=== PATIENT | female | born 1965 | race Caucasian/White ===

== ENCOUNTER 2016-12-01 15:23 | Emergency (ER) | payer MEDICARE ==
[2016-12-01 16:14] VITALS: BP 149/20
[2016-12-01] MEDS ORDERED: HYDROcodone/ACETAMIN 5-325 MG* 1 TAB PO ONE (16:19)
--- NOTE | 2016-12-01 16:50 | RAD ---
Indication: Tender at the LEFT anterolateral sixth through 11th ribs post fall onto ice. Comparison: January 27, 2014 chest radiograph. Technique: 5 view LEFT rib series. Report: Subtle contour irregularity of the LEFT seventh and eighth ribs laterally noted new compared with the prior exam consistent with nondisplaced fractures. Negative for associated pulmonary contusion, pleural effusion, pneumothorax. The heart, pulmonary vasculature, and mediastinal contours are unremarkable. IMPRESSION: Nondisplaced LEFT seventh and eighth rib fractures laterally. Negative for pneumothorax.
--- NOTE | 2016-12-01 20:50 | UC ---
Yoko Marrero SooYoung, scribed for GabyLaure DavidDO on 12/01/16 at 1612 . Truncal Trauma HPI - HPI Summary HPI Summary: A 51 y/o F presents to [facility] with c/o truncal trauma and pain onset approx 0820 this AM. Pt was shoveling outside, fell onto some ice, landing on her L side. She was unable to get up by herself. She went in and took a nap, but woke up and still had a lot of pain. Associated sx: mild nausea since pain started, small abrasion on L knee. Denies hitting head, vomiting, neck pain, dizziness, miles, visual changes, fatigue. Aggravating factors: deep breaths, movement/ walking. No alleviating factors. - History Of Current Complaint Stated Complaint: TRUNCAL TRAUMA Hx Obtained From: Patient Hx Last Menstrual Period: tubal Onset/Duration: Lasting Hours - onset 0820, Still Present Severity Initially: Severe Severity Currently: Severe Pain Intensity: 8 Pain Scale Used: 0-10 Numeric Mechanism Of Injury: Fall From A Standing Position Aggravating Factor(s): Movement, Deep Breathing Alleviating factor(s): Nothing Associated Signs And Symptoms: Positive: Nausea - mild. Negative: SOB, Cough, Hematuria, Abdominal Pain, Fever, Vomiting Related History: Prior Rib Fracture - Allergies/Home Medications Allergies/Adverse Reactions: Allergies Allergy/AdvReac Type Severity Reaction Status Date / Time Clonidine Allergy Itching Verified 05/10/16 08:37 Hydroxyzine Allergy Itching Verified 05/10/16 08:37 antibiotic Allergy Unknown Itching Uncoded 05/10/16 08:37 Home Medications: Home Medications Venlafaxine ER (NF) [Effexor ER (NF)] 300 mg PO DAILY 12/01/16 [History Confirmed 12/01/16] PMH/Surg Hx/FS Hx/Imm Hx Previously Healthy: No Endocrine History Of: Reports: Thyroid Disease - HYPO Denies: Diabetes Cardiovascular History Of: Denies: Cardiac Disorders, Hypertension, Pacemaker/ICD Respiratory History Of: Denies: COPD, Asthma GI/ History Of: Denies: Ulcer, Renal Disease Psychological History Of: Reports: Anxiety, Depression - Surgical History Surgical History: Yes Surgery Procedure, Year, and Place: tubal ligation 1993 - Family History Known Family History: Positive: Unknown - adopted, Cardiac Disease - Social History Occupation: Unemployed Lives: With Family Alcohol Use: None Substance Use Type: None Smoking Status (MU): Heavy Every Day Tobacco Smoker Type: Cigarettes Amount Used/How Often: 1 ppd Length of Time of Smoking/Using Tobacco: 35 YRS Have You Smoked in the Last Year: Yes Household Exposure Type: Cigarettes Cessation Counseling: Patient Advised to Stop Review of Systems Constitutional: Negative Skin: Other - small abrasion at L knee Eyes: Negative ENT: Negative Respiratory: Negative Cardiovascular: Negative Gastrointestinal: Other - mild nausea Genitourinary: Negative Motor: Negative Neurovascular: Negative Musculoskeletal: Other: - pain at L ribs Neurological: Negative Psychological: Negative All Other Systems Reviewed And Are Negative: Yes Physical Exam Triage Information Reviewed: Yes Appearance: Well-Appearing, Pain Distress - MODERATE, Obese Vital Signs: Initial Vital Signs Temp 98.6 F 12/01/16 16:08 Pulse 113 12/01/16 16:08 Resp 18 12/01/16 16:08 BP 149/20 12/01/16 16:08 Pulse Ox 97 12/01/16 16:08 Vital Signs Reviewed: Yes Eyes: Positive: Conjunctiva Clear. Negative: Discharge ENT: Positive: Hearing grossly normal. Negative: Muffled/hoarse voice Neck exam: Normal Neck: Positive: Supple Respiratory: Positive: Lungs clear, Normal breath sounds, No respiratory distress, No accessory muscle use Cardiovascular: Positive: RRR, No Murmur Musculoskeletal Exam: Normal Musculoskeletal: Positive: Strength Intact, No Edema, ROM Limited @ - d/t pain, Other: - TENDERNESS AT RIBS 6 to 11 on L Neurological: Positive: Alert, Muscle Tone Normal Psychological Exam: Normal Psychological: Positive: Age Appropriate Behavior Skin Exam: Normal, Other - warm, dry, nml color Diagnostics - Radiology Ribs XR Xray Interpretation: Positive (See Comments) - IMPRESSION: Nondisplaced L seventh and eigth rib fractures laterally. Neg for PTX. Radiology Interpretation Completed By: Radiologist Truncal Trauma Course/Dx - Differential Dx/Diagnosis Differential Diagnosis/HQI/PQRI: Chest Wall Contusion, Renal Trauma, Rib Fracture Provider Diagnoses: rib fx Discharge - Discharge Plan Condition: Stable Disposition: HOME Prescriptions: HYDROcodone/ACETAMIN 5-325 MG* [[place] 5-325 TAB*] 1 tab PO Q6H PRN #16 tab MDD 4 TABS PRN Reason: Pain Patient Education Materials: Rib Fracture (ED) Referrals: Everett Mendoza MD [Primary Care Provider] - 4 Days Additional Instructions: ORAL NARCOTIC MEDICATION: You have been given a prescription for pain control. This medication is a narcotic. It's best taken with food, as nausea can result if taken on an empty stomach. Don't operate machinery or drive within six hours of taking this medication. Do not combine this medicine with alcohol, or with any medication which can cause sedation (such as cold tablets or sleeping pills) unless you get permission from the physician. Narcotics tend to cause constipation. If possible, drink plenty of fluids and eat a diet high in fiber and fruits. The documentation as recorded by the Yoko malik SooYoung accurately reflects the service I personally performed and the decisions made by me, Laure Griffin DO.
== END 2016-12-01 17:14 | disposition home or self-care (01) ==
LOC: UCEAST 15:23
DX: S22.42XA Multiple fractures of ribs, left side, initial encounter for closed fracture (principal); S80.212A Abrasion, left knee, initial encounter; W00.0XXA Fall on same level due to ice and snow, initial encounter; Y93.H1 Activity, digging, shoveling and raking; Y92.9 Unspecified place or not applicable; R11.0 Nausea; Z88.1 Allergy status to other antibiotic agents; Z88.8 Allergy status to other drugs, medicaments and biological substances; F17.210 Nicotine dependence, cigarettes, uncomplicated
CPT/HCPCS: 81002; 87086; 99212; G0463

== ENCOUNTER 2017-02-11 19:45 | Emergency (ER) | payer MEDICARE ==
--- NOTE | 2017-02-11 20:17 | UC ---
Headache HPI - HPI Summary HPI Summary: The patient comes in today for: 1. Headache: Onset: 15 hours. Palliative/provocative: Laying back makes it worse. Quality: Throbbing. Region: Bitemporal, frontal, occiput Severity: 09/05 Time: Constant. Associated symptoms: Previous treatment: She took only 400 mg of Advil. Nothing else. This did not help. Nausea: "a little bit." Numbness/weakness (focal): NOne. Previous disease: Present--she sees Dr. Carlton (neurologist) who stated by the patient that she has "cluster" headaches, but she also describes them as "regular headaches." She states that she usually gets ketorolac 60 mg IM. * - History Of Current Complaint Chief Complaint: UCHeadache Stated Complaint: HEADACHE Time Seen by Provider: 02/11/17 20:11 Hx Obtained From: Patient Hx Last Menstrual Period: tubal - Allergies/Home Medications Allergies/Adverse Reactions: Allergies Allergy/AdvReac Type Severity Reaction Status Date / Time Clonidine Allergy Itching Verified 02/11/17 19:56 Hydroxyzine Allergy Itching Verified 02/11/17 19:56 antibiotic Allergy Unknown Itching Uncoded 02/11/17 19:56 PMH/Surg Hx/FS Hx/Imm Hx Previously Healthy: No Endocrine History Of: Reports: Thyroid Disease - HYPO, Hypothyroidism Denies: Diabetes, Hyperthyroidism, Dyslipidemia Cardiovascular History Of: Denies: Cardiac Disorders, Hypertension, Pacemaker/ICD, Myocardial Infarction , Congestive Heart Failure, Atrial Fibrillation, Deep Vein Thrombosis, Bleeding Disorders Respiratory History Of: Denies: COPD, Asthma, Bronchitis, Pneumonia, Pulmonary Embolism GI/ History Of: Reports: Gastroesophageal Reflux Denies: Ulcer, Gastrointestinal Bleed, Gall Bladder Disease, Kidney Stones, Diverticulitis, Renal Disease, Urosepsis Neurological History Of: Denies: TIA, CVA, Dementia, Seizures, Migraine Psychological History Of: Reports: Anxiety, Depression Denies: Bipolar Disorder, Schizophrenia, Post Traumatic Stress Disorder Cancer History Of: Denies: Lung Cancer, Colorectal Cancer, Breast Cancer, Prostate Cancer, Cervical Cancer - Surgical History Surgical History: Yes Surgery Procedure, Year, and Place: tubal ligation 1993 - Family History Known Family History: Positive: Cardiac Disease, Hypertension Negative: Diabetes - Social History Occupation: Disabled - Disabled due to depression/anxiety. Alcohol Use: None Substance Use Type: Prescribed Smoking Status (MU): Heavy Every Day Tobacco Smoker Type: Cigarettes Amount Used/How Often: 1 ppd Length of Time of Smoking/Using Tobacco: 35 YRS Have You Smoked in the Last Year: Yes Household Exposure Type: Cigarettes Review of Systems Constitutional: Negative Skin: Negative Eyes: Negative ENT: Negative Respiratory: Negative Cardiovascular: Negative Gastrointestinal: Negative Musculoskeletal: Arthralgia, Myalgia All Other Systems Reviewed And Are Negative: Yes Physical Exam Triage Information Reviewed: Yes Appearance: Well-Appearing, Well-Nourished, Pain Distress - She has decreased facial expression spontaneity. Vital Signs: Initial Vital Signs Temp 98.8 F 02/11/17 19:52 Pulse 103 02/11/17 19:52 Resp 18 02/11/17 19:52 BP 122/89 02/11/17 19:52 Pulse Ox 99 02/11/17 19:52 Vital Signs Reviewed: Yes Eyes: Positive: Conjunctiva Clear. Negative: Discharge ENT: Positive: Hearing grossly normal. Negative: Pharyngeal erythema, Nasal congestion, Nasal drainage, TM bulging, TM dull, TM red, Tonsillar swelling, Tonsillar exudate Dental: Negative: Gross Decay/Caries @, Dental Fracture @ Neck: Positive: Supple, Nontender, No Lymphadenopathy. Negative: Nuchal Rigidity Respiratory: Positive: Chest non-tender, Lungs clear, No respiratory distress, No accessory muscle use. Negative: Crackles, Wheezing Cardiovascular: Positive: RRR, No Murmur Abdomen Description: Positive: Nontender, No Organomegaly, Soft, Distended Musculoskeletal: Positive: Strength Intact, ROM Intact Neurological: Positive: Alert, Muscle Tone Normal Psychological: Positive: Age Appropriate Behavior, Consolable Skin: Negative: rashes, breakdown Re-Evaluation - Re-Evaluation First Eval Change: Improved Comment: The patient states that she is much better after the ketorolac injection--the headache is from 10/10 to 4/10. She wants to go home. Headache Course/Dx - Course Course Of Treatment: Ketorolac injection. - Differential Dx/Diagnosis Provider Diagnoses: Headache. Discharge - Discharge Plan Condition: Stable Disposition: HOME Patient Education Materials: General Headache (ED) Referrals: Everett Mendoza MD [Primary Care Provider] - 1 Week (Please see your primary care provider in a week to see how well you are doing. If you get worse, please be seen sooner in the ER or through us.)
[2017-02-11] MEDS ORDERED: Ketorolac INJ* 60 MG/2 ML VIAL IM ONE (20:20)
[2017-02-11 21:35] VITALS: BP 110/85
== END 2017-02-11 21:30 | disposition home or self-care (01) ==
LOC: UCEAST 19:45
DX: R51 Headache (principal); E03.9 Hypothyroidism, unspecified; F17.210 Nicotine dependence, cigarettes, uncomplicated; Z88.1 Allergy status to other antibiotic agents
CPT/HCPCS: 99212; G0463; J1885

== ENCOUNTER 2017-07-29 19:18 | Emergency (ER) | payer MEDICARE ==
[2017-07-29 19:36] VITALS: BP 124/78
--- NOTE | 2017-07-29 20:09 | UC ---
Mile Marrero Alfonso, scribed for Gilberto Ribeiro MD on 07/29/17 at 2003 . Headache HPI - HPI Summary HPI Summary: This patient is a 52 year old F presenting to [facility] with a chief complaint of diffuse throbbing headache since waking up at 0900 this morning. The patient rates the pain 9/10 in severity. Symptoms aggravated by nothing. Symptoms alleviated by nothing. Patient reports sinus congestion. Patient denies fever, chills, N/V, photophobia, and rhinorrhea. She denies recent trauma. She denies taking blood thinning medication. PMHx includes anxiety and similar headaches. Medications reviewed. Allergies reviewed. - History Of Current Complaint Chief Complaint: UCRespiratory Stated Complaint: HEADACHE Time Seen by Provider: 07/29/17 19:57 Hx Obtained From: Patient Hx Last Menstrual Period: tubal Onset/Duration: Sudden Onset, Lasting Hours - 0900 this morning, Still Present Currently Pain Is: Current Pain Scale(0-10)= - 9/10 Pain Intensity: 9 Pain Scale Used: 0-10 Numeric Timing: Constant Character: Throbbing Location of Headache: Diffuse Aggravating Factor: Nothing Allevating Factors: Nothing Associated Signs And Symptoms: Positive: Other (Noted In Comments) - sinus congestion. Patient denies fever, chills, N/V, photophobia, and rhinorrhea - Allergies/Home Medications Allergies/Adverse Reactions: Allergies Allergy/AdvReac Type Severity Reaction Status Date / Time Clonidine Allergy Itching Verified 07/29/17 19:36 Hydroxyzine Allergy Itching Verified 07/29/17 19:36 antibiotic Allergy Unknown Itching Uncoded 07/29/17 19:36 PMH/Surg Hx/FS Hx/Imm Hx Neurological History: Other - Headaches Other Neurological History: . Psychological History: Anxiety - Surgical History Surgical History: Yes Surgery Procedure, Year, and Place: tubal ligation 1993 - Family History Known Family History: Positive: Cardiac Disease, Hypertension Negative: Diabetes - Social History Alcohol Use: None Substance Use Type: Prescribed Smoking Status (MU): Heavy Every Day Tobacco Smoker Type: Cigarettes Amount Used/How Often: 1 ppd Length of Time of Smoking/Using Tobacco: 35 YRS Have You Smoked in the Last Year: Yes Household Exposure Type: Cigarettes Review of Systems Constitutional: Negative Eyes: Other - Negative photophobia ENT: Sinus Congestion, Other - Negative rhinorrhea Gastrointestinal: Other - Negative N/V Neurological: Headache All Other Systems Reviewed And Are Negative: Yes Physical Exam Triage Information Reviewed: Yes Appearance: Well-Appearing, Pain Distress - Mild Vital Signs: Initial Vital Signs Temp 96.4 F 07/29/17 19:34 Pulse 104 07/29/17 19:34 Resp 18 07/29/17 19:34 BP 124/78 07/29/17 19:34 Pulse Ox 99 07/29/17 19:34 Vital Signs Reviewed: Yes Eyes: Positive: Other: - EOMI MARITZA ENT: Positive: Normal ENT inspection Neck: Positive: Supple, Nontender Respiratory: Positive: Lungs clear, Normal breath sounds Cardiovascular: Positive: RRR Abdomen Description: Positive: Nontender, Soft Bowel Sounds: Positive: Present Musculoskeletal: Positive: Strength Intact, ROM Intact Neurological: Positive: Alert Psychological: Positive: Age Appropriate Behavior Skin: Positive: Other - warm, color reflects adequate perfusion, dry Headache Course/Dx - Course Course Of Treatment: PATIENT REPORTS THIS IS A TYPICAL ABRAHAM. NO FEVER/SIGN OF INFECTION. NO TRAUMA. - Differential Dx/Diagnosis Provider Diagnoses: HEADACHE Discharge - Discharge Plan Condition: Stable Disposition: HOME Patient Education Materials: General Headache (ED) Referrals: Everett Mendoza MD [Primary Care Provider] - 2 Weeks Elke Carlton MD [Medical Doctor] - Additional Instructions: FOLLOW UP WITH YOUR PRIMARY CARE PROVIDER WITHIN TWO WEEKS FOR HIGH BLOOD PRESSURE NOTED TODAY AT 124/78. The documentation as recorded by the Mile malik Alfonso accurately reflects the service I personally performed and the decisions made by me, Gilberto Ribeiro MD.
[2017-07-29] MEDS: Ketorolac INJ* 60 MG/2 ML VIAL IM ONE (20:17)
== END 2017-07-29 20:37 | disposition home or self-care (01) ==
LOC: UCEAST 19:18
DX: R51 Headache (principal); R03.0 Elevated blood-pressure reading, without diagnosis of hypertension
CPT/HCPCS: 96372; 99211; G0463; J1885

== ENCOUNTER 2017-07-31 14:14 | Emergency (ER) | payer MEDICARE ==
[2017-07-31 14:23] VITALS: BP 122/81
[2017-07-31] MEDS ORDERED: Ketorolac INJ* 60 MG/2 ML VIAL IM ONE (15:01)
--- NOTE | 2017-07-31 15:35 | ED ---
Zhang Marrero Nikita, scribed for Mic Diaz MD on 07/31/17 at 1458 . Headache - HPI Summary HPI Summary: This patient is a 52 year old F presenting to ED with a chief complaint of headache since two days ago. Pt reports this Monday she took a 16 mg of Toradol shot. The headache lessened but persisted. Pt has had a Hx of headaches once a month which usually gets better after having 4 Advil. Yesterday, the pt still felt the ABRAHAM and she took nothing today because nothing had been working to alleviate the pain. The CC is described as from neck up (usually, the ABRAHAM is all over the head), and constant but waxing and waning. The patient rates the pain 8/10 in severity. Symptoms aggravated by nothing. Symptoms alleviated by nothing. Patient reports diaphoresis. Patient denies nausea, photophobia, fever , chills, rhinorrhea, and nasal congestion. - History Of Current Complaint Chief Complaint: UCHeadache Stated Complaint: HEADACHE Time Seen by Provider: 07/31/17 14:50 Hx Obtained From: Patient Hx Last Menstrual Period: tubal Onset/Duration: Sudden Onset, Started days ago - 2 days ago, Still Present Initially Headache Was: Initial Pain Scale(0-10)= - 8 Currently Pain Is: Current Pain Scale(0-10)= - 8 Timing: Constant - waxing and waning Location of Headache: Diffuse - starts from neck Aggravating Factor: Nothing Allevating Factors: Nothing Associated Signs And Symptoms: Other (Noted In Comments) - Patient reports diaphoresis. Patient denies nausea, photophobia, fever, chills, rhinorrhea, and nasal congestion. - Allergies/Home Medications Allergies/Adverse Reactions: Allergies Allergy/AdvReac Type Severity Reaction Status Date / Time Clonidine Allergy Itching Verified 07/31/17 14:21 Hydroxyzine Allergy Itching Verified 07/31/17 14:21 antibiotic Allergy Unknown Itching Uncoded 07/31/17 14:21 PMH/Surg Hx/FS Hx/Imm Hx Endocrine/Hematology History: Reports: Hx Thyroid Disease - HYPO Denies: Hx Diabetes, Hx Anemia Cardiovascular History: Reports: Other Cardiovascular Problems/Disorders - IRREGULAR HEARTBEAT Denies: Hx Congestive Heart Failure, Hx Deep Vein Thrombosis, Hx Hypertension , Hx Myocardial Infarction, Hx Pacemaker/ICD Respiratory History: Denies: Hx Asthma, Hx Chronic Obstructive Pulmonary Disease (COPD), Hx Lung Cancer, Hx Pneumonia, Hx Pulmonary Embolism GI History: Reports: Hx Gastroesophageal Reflux Disease - PT. STATES CONTROLLED WITH MEDS Denies: Hx Gall Bladder Disease, Hx Gastrointestinal Bleed, Hx Ulcer, Hx Urosepsis History: Denies: Hx Kidney Stones, Hx Renal Disease Musculoskeletal History: Reports: Other Musculoskeletal History - CARPAL TUNNEL SYNDROME Sensory History: Reports: Hx Contacts or Glasses - READING Denies: Hx Hearing Aid Opthamlomology History: Reports: Hx Contacts or Glasses - READING Neurological History: Reports: Hx Headaches - OCC Denies: Hx Dementia, Hx Migraine, Hx Seizures, Hx Transient Ischemic Attacks (TIA) Psychiatric History: Reports: Hx Anxiety, Hx Depression Denies: Hx Panic Disorder, Hx Schizophrenia, Hx Bipolar Disorder - Surgical History Surgery Procedure, Year, and Place: tubal ligation 1993. left and right carpal tunnel Hx Anesthesia Reactions: No Infectious Disease History: No Infectious Disease History: Denies: Hx Clostridium Difficile, Hx Hepatitis, Hx Human Immunodeficiency Virus (HIV), Hx of Known/Suspected MRSA, Hx Shingles, Hx Tuberculosis, Hx Known/ Suspected VRE, Hx Known/Suspected VRSA, History Other Infectious Disease, Traveled Outside the [place] in Last 30 Days - Family History Known Family History: Positive: Unknown - adopted, Cardiac Disease, Hypertension Negative: Diabetes - Social History Alcohol Use: None Substance Use Type: Reports: None, Prescribed Smoking Status (MU): Heavy Every Day Tobacco Smoker Type: Cigarettes Amount Used/How Often: 1 ppd Length of Time of Smoking/Using Tobacco: 35 YRS Have You Smoked in the Last Year: Yes Review of Systems Positive: Skin Diaphoresis. Negative: Fever, Chills Negative: Photophobia Positive: Other - NEGATIVE: rhinnorhea, nasal congestion Negative: Nausea Positive: Headache All Other Systems Reviewed And Are Negative: Yes Physical Exam - Summary Physical Exam Summary: The patient is in no acute distress. HEENT: The pupils are equal and reactive. Mouth reveals moist mucous membranes and the throat is without erythema and exudate. The tympanic membranes are intact. Non-photophobic. TM is visual and normal. Tenderness to percussion of sinuses. Reproducible pain over sinuses. Neck is supple. No meningeal signs. Full range of motion through fluxion and extension of neck. Respiratory: Lungs are clear to auscultation and breath sounds are symmetrical and equal. Cardiovascular: Heart is regular rate and rhythm. Distal pulses are symmetrical and equal. Abdomen: The abdomen is soft and non-tender. There are normal bowel sounds heard in all four quadrants. Neurological: Patient is alert. ~The patient has symmetrical motor strength in all four extremities. ~Cranial nerves are grossly intact. Deep tendon reflexes are symmetrical and equal in all four extremities. Psychological: Patient answers questions appropriately. Triage Information Reviewed: Yes Vital Signs On Initial Exam: Initial Vitals Temp Pulse Resp BP Pulse Ox 98.5 F 100 18 122/81 98 07/31/17 14:16 07/31/17 14:16 07/31/17 14:16 07/31/17 14:16 07/31/17 14:16 Vital Signs Reviewed: Yes Diagnostics - Vital Signs Vital Signs Temp Pulse Resp BP Pulse Ox 07/31/17 14:16 98.5 F 100 18 122/81 98 - Laboratory Lab Statement: Any lab studies that have been ordered have been reviewed, and results considered in the medical decision making process. Headache Course/Dx - Course Assessment/Plan: This patient is a 52 year old F presenting to ED with a chief complaint of headache since two days ago. Pt reports this Monday she took a 16 mg of Toradol shot. The headache lessened but persisted. Pt has had a Hx of headaches once a month which usually gets better after having 4 Advil. The CC is described as from neck up (usually, the ABRAHAM is all over the head), and constant but waxing and waning. The patient rates the pain 8/10 in severity. Symptoms aggravated by nothing. Symptoms alleviated by nothing. Patient reports diaphoresis. Patient denies nausea, photophobia, fever, chills, rhinnorhea, and nasal congestion. Pt will be discharged with Rx 5 Percocet and a Dx of a headache. Pt will follow up with Elke Carlton (neuro) and Everett Mendoza (PCP) within 2-3 days. Pt is agreeable with this plan. - Diagnoses Differential Diagnosis/HQI/PQRI: Migraine, Tension Headache, Other - generalized headache Provider Diagnoses: Headache Discharge - Discharge Plan Condition: Stable Disposition: HOME Prescriptions: oxyCODONE/Acetamin 5/325 MG* [Percocet 5/325 TAB*] 1 tab PO Q6H PRN #20 tab MDD 4 PRN Reason: headache Patient Education Materials: General Headache (ED) Referrals: Everett Mendoza MD [Primary Care Provider] - (Follow up within 2-3 days.) Elke Carlton MD [Medical Doctor] - (Follow up within 2-3 days.) The documentation as recorded by the Zhang malik Nikita accurately reflects the service I personally performed and the decisions made by me, Mic Diaz MD.
== END 2017-07-31 15:29 | disposition home or self-care (01) ==
LOC: UCEAST 14:14
DX: R51 Headache (principal); R61 Generalized hyperhidrosis; E03.9 Hypothyroidism, unspecified; I49.9 Cardiac arrhythmia, unspecified; K21.9 Gastro-esophageal reflux disease without esophagitis; F41.9 Anxiety disorder, unspecified; F32.9 Major depressive disorder, single episode, unspecified; Z88.1 Allergy status to other antibiotic agents; F17.210 Nicotine dependence, cigarettes, uncomplicated
CPT/HCPCS: 99212; G0463; J1885

== ENCOUNTER 2017-09-21 18:14 | Emergency (ER) | payer SELFPAY ==
[2017-09-21 18:31] VITALS: BP 120/76
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
== END 2017-09-21 19:17 | disposition home or self-care (01) ==
LOC: UCEAST 18:14
DX: R07.81 Pleurodynia (principal); Z88.1 Allergy status to other antibiotic agents; Z88.8 Allergy status to other drugs, medicaments and biological substances; F17.210 Nicotine dependence, cigarettes, uncomplicated
CPT/HCPCS: 71020; 99212; G0463

== ENCOUNTER 2017-12-02 17:27 | Emergency (ER) | payer MEDICARE ==
[2017-12-02 17:37] VITALS: BP 121/83
--- NOTE | 2017-12-02 17:55 | UC ---
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 Negative: Nausea, Vomiting, Neck Pain, Neck Stiffness - Allergies/Home Medications Allergies/Adverse Reactions: Allergies Allergy/AdvReac Type Severity Reaction Status Date / Time Clonidine Allergy Itching Verified 12/02/17 17:38 Hydroxyzine Allergy Itching Verified 12/02/17 17:38 antibiotic Allergy Unknown Itching Uncoded 12/02/17 17:38 Home Medications: Home Medications Ibuprofen TAB* [Motrin TAB* 800 MG] 800 mg PO Q6H PRN 12/02/17 [History Confirmed 12/02/17] PMH/Surg Hx/FS Hx/Imm Hx Previously Healthy: Yes Endocrine History: Hypothyroidism Psychological History: Anxiety, Depression, Bipolar Disorder - Surgical History Surgical History: Yes Surgery Procedure, Year, and Place: tubal ligation 1993. left and right carpal tunnel - Family History Known Family History: Positive: Unknown - adopted, Cardiac Disease, Hypertension Negative: Diabetes - Social History Occupation: Disabled Lives: With Family Alcohol Use: None Substance Use Type: None Smoking Status (MU): Heavy Every Day Tobacco Smoker Type: Cigarettes Amount Used/How Often: 1 ppd Length of Time of Smoking/Using Tobacco: 35 YRS Have You Smoked in the Last Year: Yes Household Exposure Type: Cigarettes Cessation Counseling: Patient Advised to Stop - Immunization History Most Recent Influenza Vaccination: never Review of Systems Constitutional: Negative Respiratory: Negative Cardiovascular: Negative Neurovascular: Negative Neurological: Headache Psychological: Negative All Other Systems Reviewed And Are Negative: Yes Physical Exam Triage Information Reviewed: Yes Appearance: Well-Appearing, Obese Vital Signs: Initial Vital Signs Temp 97.6 F 12/02/17 17:32 Pulse 103 12/02/17 17:32 Resp 16 12/02/17 17:32 BP 121/83 12/02/17 17:32 Pulse Ox 98 12/02/17 17:32 Vital Signs Reviewed: Yes Respiratory Exam: Normal Cardiovascular Exam: Normal Neurological Exam: Normal Psychological Exam: Normal Skin Exam: Normal Re-Evaluation - Re-Evaluation First Eval Re-Evaluation Time: 19:00 Change: Improved Comment: states headache much better Headache Course/Dx - Differential Dx/Diagnosis Differential Diagnosis/HQI/PQRI: Migraine, Tension Headache, Viral Syndrome Provider Diagnoses: headache Discharge - Discharge Plan Condition: Improved Disposition: HOME Patient Education Materials: Migraine Headache (ED) Referrals: Everett Mendoza MD [Primary Care Provider] - 2 Days (for recheck) Additional Instructions: rest. no ibuprofen or anaprox until tomorrow. You may use over the counter Tylenol as directed report to ER if symptoms worsen
[2017-12-02] MEDS ORDERED: Ketorolac INJ* 60 MG/2 ML VIAL IM ONE (17:59)
== END 2017-12-02 19:05 | disposition home or self-care (01) ==
LOC: UCEAST 17:27
DX: R51 Headache (principal); E66.9 Obesity, unspecified; F17.210 Nicotine dependence, cigarettes, uncomplicated; Z88.8 Allergy status to other drugs, medicaments and biological substances; Z88.1 Allergy status to other antibiotic agents
CPT/HCPCS: 99211; G0463; J1885

== ENCOUNTER 2018-06-15 12:14 | Emergency (ER) | payer MEDICARE, OTHER ==
--- OUTSIDE RECORDS SUMMARY | 2018-06-15 12:21 | XMS REPORT ---
:1965 External Reference #:[id number] Author Organization [facility] Address [address] [place] [address] [place] [address] Phone [phone] Care Team Providers Name Role Phone Everett Mendosa MD Primary Care Physician Unavailable Payers Type Date Identification Numbers Payment Provider Subscriber Commercial Effective: Policy Number: [id number] [employer] Loreen S McDougal 2017 PayID: [id number] [address] [place] [address] Medigap Part B Expires: 2016 Policy Number: Medicare Alma Rosa Freitas [id number] PayID: [id number] [address] [place] [address] Commercial Effective: 2011 Policy Number: [id number] Ethan Freitas Expires: 2016 Group Name: [id number] [address] PayID: [id number] [place] [address] Problems Date Description Provider Status Onset: 06/18/2015 Migraine without aura Elke Carlton M.D. Active Onset: 06/18/2015 Carpal tunnel syndrome Elke Carlton M.D. Active Social History Type Date Description Comments Lives With Alone ETOH Use Denies alcohol use Smoking Heavy tobacco smoker (more than 10 cigarettes/day) Exercise Type/Frequency Does not exercise Allergies, Adverse Reactions, Alerts Date Description Reaction Status Severity Comments 03/02/2016 Clonidine active 07/09/2013 NKDA inactive Medications Medication Date Status Form Strength Qnty SIG Indications Ordering Provider Hydrocodone-Acet 07/20/ Active Tablets 5-325mg 30tabs 1 by G43.909 Elke vaughan 2017 mouth Stackman, every 6-8 M.D. hours for severe migraine prn. Wrist Splint 06/18/ Active Misc 2units neutral Elke Dunn Open Thumb 2014 or 20 Stackman extension Jaiden ; wear at night for 1 month Clonazepam / Active Tablets 1mg 60tabs 1 tab po Unknown 0000 tid Seroquel / Active Tab 300mg 2 tabs po Unknown 0000 qhs Metoclopramide / Active Tablets 10mg 40tabs 1 po qid Unknown HCL 0000 prn Omeprazole / Active Capsules 20mg 1 po qd Unknown [address] Levothyroxine / Active Tablets 100mcg 1 by Unknown Sodium 0000 mouth every day Bupropion HCL ER / Active Tablets ER 450mg qd Unknown (SR) 0000 12HR Effexor XR / Active Caps ER 150mg 1 by Unknown 0000 24HR mouth every day Ibuprofen / Active Tablets 800mg by mouth Unknown 0000 three times a day as needed Hydrocodone-Acet 09/23/ Hx Tablets 5-325mg 30tabs 1 by Elke vaughan 2015 - mouth Stackman, 07/19/ every 6-8 M.D. 2017 hours for severe migraine prn. Leck Kill 05/26/ Hx Tablets 5-325mg 20tabs 1 by G56.02 Licha 2015 - mouth q6 Perdomo, 06/22/ hour as M.D. 2016 needed pain Leck Kill 05/04/ Hx Tablets 5-325mg 30tabs one to Licha 2015 - two tabs Perdomo, 06/22/ by mouth M.D. 2016 every 4-6 hours as needed pain Leck Kill 03/23/ Hx Tablets 5-325mg 20tabs one tab Licha 2015 - by mouth Perdomo, 05/03/ every 6 M.D. 2016 -8hours as needed pain Hydrocodone-Acet 03/02/ Hx Tablets 5-325mg 30tabs 1 tabs by Licha vaughan 2015 - mouth Perdomo, 04/13/ every 4- M.D. 2016 6 hours as needed pain Hydrocodone-Acet 12/15/ Hx Tablets 5-325mg 30tabs 1 by G43.009 Elke vaughan 2015 - mouth Stackman, 05/03/ every 6-8 M.D. 2016 hours for sever migraine prn. Gabapentin 09/10/ Hx Capsules 300mg 90caps 1 cap PO Cheryl 2014 - QHS for 3 GnSHADE oro 05/03/ weeks, 2016 then 2 caps PO QHS for 3 weeks, then 3 caps PO QHS Nortriptyline 08/25/ Hx Capsules 10mg 60caps 1-2 caps G43.009 Elke Dunn HCL 2014 - by mouth Bianka, 08/25/ every M.D. 2014 night as directed Zonisamide 08/25/ Hx Capsules 25mg 120cap 1-4 caps G43.009 Elke Dunn 2015 - s by mouth Bianka, 08/30/ every M.D. 2014 night as directed Hydrocodone/Acet 02/03/ Hx Tablets 5-325mg 40tabs 1 tab by G43.009 Elke Dunn aminophen 2014 - mouth 8h Bianka, 12/15/ as needed M.D. 2015 Nortriptyline 04/02/ Hx Capsules 10mg 90caps 1-3 tabs Elke Dunn HCL 2012 - by mouth Bianka, 01/25/ every M.D. 2014 night as directed Hydrocodone/Acet 04/02/ Hx Tablets 5-325mg 40tabs 1 tab po Elke Dunn aminophen 2012 - 8h prn Bianka, 01/25/ M.D. 2014 Naproxen 11/30/ Hx Tablets 250mg 45tabs 1 - 2 Elke Dunn 2012 - tabs by Bianka, 01/25/ mouth M.D. 2014 every 12 hours as needed Topiramate 11/30/ Hx Tablets 100mg 120tab 2 tablets Cheryl 2012 - s by mouth SHADE Saini 06/17/ twice a 2014 day Pristiq / Hx Tab 50mg 3 tabs po Unknown 0000 - daily 2015 Wellbutrin 00/ Hx Tablet 1 tab po Unknown 0000 - daily in 2014 to 150mg tab Topiramate / Hx Tablets 200mg 60tabs (?) Elke Dunn 0000 - Bianka, 07/09/ M.D. 2012 Levothyroxine / Hx Tablets 25mcg 1 po qd Unknown Sodium 0000 - 2014 Medications Administered in Office Medication Date Status Form Strength Qnty SIG Indications Ordering Provider Depomedrol Administered Injection Licha 40MG 018 Jaiden Perdomo Depomedrol Administered Injection Licha 40MG 018 Jaiden Perdomo Vital Signs Date Vital Result Comment 05/31/2018 Height 62 inches 5'2" Weight 200.00 lb Heart Rate 84 /min Respiratory Rate 22 /min Body Temperature 96.5 F Pain Level 0 BMI (Body Mass Index) 36.6 kg/m2 04/25/2018 Height 62 inches 5'2" Heart Rate 96 /min BP Systolic 118 mmHg BP Diastolic 70 mmHg Respiratory Rate 16 /min Body Temperature 98.3 F Pain Level 1 03/07/2018 Height 62 inches 5'2" Weight 193.00 lb BP Systolic 132 mmHg BP Diastolic 82 mmHg Respiratory Rate 18 /min Body Temperature 97.2 F Pain Level 0 BMI (Body Mass Index) 35.3 kg/m2 07/20/2017 Height 62 inches 5'2" Weight 200.25 lb Heart Rate 68 /min BP Systolic Sitting 188 mmHg BP Diastolic Sitting 82 mmHg Respiratory Rate 16 /min BMI (Body Mass Index) 36.6 kg/m2 09/22/2016 Height 62 inches 5'2" Weight 181.00 lb Heart Rate 60 /min BP Systolic Sitting 116 mmHg BP Diastolic Sitting 80 mmHg Respiratory Rate 14 /min BMI (Body Mass Index) 33.1 kg/m2 08/10/2016 Height 62 inches 5'2" Weight 176.00 lb Heart Rate 60 /min Respiratory Rate 16 /min Pain Level 0 BMI (Body Mass Index) 32.2 kg/m2 06/23/2016 Height 62 inches 5'2" Weight 195.00 lb BMI (Body Mass Index) 35.7 kg/m2 06/01/2016 Height 62 inches 5'2" Weight 195.00 lb Pain Level 10 BMI (Body Mass Index) 35.7 kg/m2 05/26/2016 Height 62 inches 5'2" Weight 195.00 lb Heart Rate 60 /min Respiratory Rate 16 /min Pain Level 5 BMI (Body Mass Index) 35.7 kg/m2 05/05/2016 Height 62 inches 5'2" Weight 192.00 lb Heart Rate 80 /min BP Systolic Sitting 118 mmHg BP Diastolic Sitting 78 mmHg Respiratory Rate 14 /min BMI (Body Mass Index) 35.1 kg/m2 05/04/2016 Height 62 inches 5'2" Weight 192.00 lb Heart Rate 95 /min BP Systolic 108 mmHg BP Diastolic 83 mmHg BMI (Body Mass Index) 35.1 kg/m2 04/14/2016 Height 62 inches 5'2" Weight 192.00 lb Pain Level 9 BMI (Body Mass Index) 35.1 kg/m2 03/23/2016 Height 62 inches 5'2" Weight 192.00 lb Respiratory Rate 16 /min Body Temperature 98.6 F Pain Level 7 BMI (Body Mass Index) 35.1 kg/m2 03/02/2016 Height 62 inches 5'2" Weight 191.00 lb Heart Rate 70 /min BP Systolic 110 mmHg BP Diastolic 72 mmHg Pain Level 10 BMI (Body Mass Index) 34.9 kg/m2 12/15/2015 Height 62 inches 5'2" Weight 191.00 lb Heart Rate 60 /min BP Systolic Sitting 116 mmHg BP Diastolic Sitting 82 mmHg Respiratory Rate 14 /min BMI (Body Mass Index) 34.9 kg/m2 08/25/2015 Height 62 inches 5'2" Heart Rate 72 /min BP Systolic Sitting 112 mmHg BP Diastolic Sitting 74 mmHg Respiratory Rate 16 /min 06/18/2015 Height 62 inches 5'2" Weight 184.00 lb Heart Rate 68 /min BP Systolic Sitting 116 mmHg BP Diastolic Sitting 80 mmHg Respiratory Rate 16 /min BMI (Body Mass Index) 33.7 kg/m2 02/03/2015 Height 62 inches 5'2" Weight 178.00 lb Heart Rate 92 /min BP Systolic Sitting 102 mmHg BP Diastolic Sitting 78 mmHg Respiratory Rate 16 /min BMI (Body Mass Index) 32.6 kg/m2 07/09/2013 Height 62 inches 5'2" Weight 190.00 lb Heart Rate 100 /min BP Systolic Sitting 108 mmHg BP Diastolic Sitting 76 mmHg Respiratory Rate 16 /min BMI (Body Mass Index) 34.7 kg/m2 11/30/2012 Heart Rate 78 /min BP Systolic 118 mmHg BP Diastolic 76 mmHg Respiratory Rate 14 /min Results Test Date Test Result H/L Range Note Laboratory test finding 07/20/2017 TSH (Thyroid Stim 0.77 mcIU/mL 0.34- 5.60 Horm) Free T4 (Free Thyroxine) 0.64 ng/dL 0.61-1.12 Laboratory test finding 12/15/2015 Free T4 (Free 0.51 ng/mL Low 0.61-1.12 1 Thyroxine) TSH (Thyroid Stim Horm) 3.50 ?IU/mL 0.34-5.60 2 1 Copy Result to: EVERETT MENDOSA ([id number]) 2 Copy Result to: EVERETT MENDOSA ([id number]) Procedures Date CPT Code Description Status 04/25/2018 39618 Injection, Carpal Tunnel Completed 05/17/2016 92797 Carpal Tunnel Release Completed 05/17/2016 01912 Carpal Tunnel Release Completed 03/11/2016 89706 Carpal Tunnel Release Completed 03/11/2016 70615 Carpal Tunnel Release Completed 08/25/2015 76209 Nerve Conduction 07-08 Studies Completed Encounters Type Date Location Provider CPT E/M Dx Office Visit 03/07/2018 [facility], 03978 G56.03 10:15a [place] ANGLIN G56.22 Office Visit 07/20/2017 10:00a [facility] Elke Carlton, 22458 G43.909 [facility] M.DAmy Office Visit 09/22/2016 11:00a [place] [place], 79525 G43.909 [facility] M.DAmy G56.03 Office Visit 05/05/2016 10:45a Tati Carlton 88007 G56.02 [facility] M.DAmy G56.01 G43.009 Office Visit 03/02/2016 9:30a [facility] Licha Perdomo 14047 G56.01 [facility] Hwang G56.02 Office Visit 12/15/2015 9:45a Tati Carlton 24991 G43.009 [facility] M.D. G56.01 G56.02 Office Visit 08/25/2015 1:00p Tati Carlton 83119 G43.009 [facility] M.D. G56.01 G56.02 Office Visit 06/18/2015 11:00a Tati Carlton 43787 346.10 [facility] M.DAmy 354.0 782.0 Office Visit 02/03/2015 10:30a [facility] Elke Carlton 98899 346.10 M.D. Office Visit 07/09/2013 11:15a [facility] Elke Carlton, 80323 346.90 [facility] M.D. Office Visit 04/02/2013 10:45a [facility] Elke Carlton, 27045 346.10 [facility] M.D. Office Visit 11/30/2012 11:45a [facility] Elke Carlton, 25882 346.10 Services Of Stef Hwang 354.0 Plan of Care Future Appointment(s):06/28/2018 1:15 pm - Licha Perdomo M.D. at [facility]
[2018-06-15 12:23] VITALS: BP 119/77
--- NOTE | 2018-06-15 12:32 | UC ---
Headache HPI - HPI Summary HPI Summary: 53 yo female presents with generalized headache that began this morning. She tells me that every few months she will get a headache like this. No aura. She says that when it feels generalized like this that she always seeks medical care and has found the 60mg of toradol works very well and resolves her headache within an hour or so. She is requesting 60mg of toradol today. Denies fever, chills, dizziness, vision changes, weakness, or loss of balance. She has not taken anything for her headache today. 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 Onset/Duration: Sudden Onset Initially Headache Was: Severe Currently Pain Is: Severe Pain Intensity: 10 Pain Scale Used: 0-10 Numeric Character: Typical Headache Location of Headache: Diffuse - Allergies/Home Medications Allergies/Adverse Reactions: Allergies Allergy/AdvReac Type Severity Reaction Status Date / Time clonidine Allergy itch Verified 06/15/18 12:18 hydroxyzine Allergy itch Verified 06/15/18 12:18 antibiotic Allergy unk Uncoded 06/15/18 12:19 PMH/Surg Hx/FS Hx/Imm Hx - Additional Past Medical History Additional PMH: Headaches Endocrine History: Hypothyroidism GI/ History: Gastroesophageal Reflux Psychological History: Anxiety, Depression, Bipolar Disorder - Surgical History Surgical History: Yes Surgery Procedure, Year, and Place: tubal ligation 1993. left and right carpal tunnel - Family History Known Family History: Positive: Unknown - adopted, Cardiac Disease, Hypertension Negative: Diabetes - Social History Lives: With Family Alcohol Use: None Substance Use Type: None Smoking Status (MU): Heavy Every Day Tobacco Smoker Type: Cigarettes Amount Used/How Often: 1 ppd Length of Time of Smoking/Using Tobacco: 35 YRS Have You Smoked in the Last Year: Yes Household Exposure Type: Cigarettes - Immunization History Most Recent Influenza Vaccination: never Review of Systems Constitutional: Negative Skin: Negative Eyes: Negative ENT: Negative Respiratory: Negative Neurovascular: Negative Neurological: Headache Psychological: Negative All Other Systems Reviewed And Are Negative: Yes Physical Exam - Summary Physical Exam Summary: GENERAL: NAD. Obese SKIN: No rashes, sores, ulcers HEENT: Head: AT/NC Eyes: PERRLA. EOM intact. Conjunctiva clear without inflammation or discharge. Ears: Hearing grossly normal. TMs intact, no bulging, erythema, or edema. Nose: Nasal mucosa pink and moist. NTTP maxillary and frontal sinus. Throat: Posterior oropharynx without exudates, erythema, or tonsillar enlargement. Uvula midline. NECK: Supple. Nontender. No lymphadenopathy. CHEST: CTAB. No r/r/w. No accessory muscle use. Breathing comfortably and in no distress. CV: RRR. Without m/r/g. Pulses intact. Brisk cap refill. MSK: FROM in B/L UEs and LEs with symmetric strength. NEURO: A&Ox3. 3 word recall, remote, recent memory, ability to follow 2-step directions, and attention intact. CN II XII grossly intact. [id number] are intact. Gait with normal base. Romberg: maintains balance, no pronator drift. Normal speech. No facial drooping. PSYCH: Age appropriate behavior. 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/Release Non-Paretic Hand: Both Correctly Best Gaze (Only Horizontal Eye Movement): Normal Visual Field Testing: No Visual Loss Facial Paresis-Pt to Smile & Close Eyes or Grimace Symmetry: Normal/Symmetrical Motor Function - Right Arm: No Drift-Holds 10 Seconds Motor Function - Left Arm: No Drift-Holds 10 Seconds Motor Function - Right Leg: No Drift-Holds 10 Seconds Motor Function - Left Leg: No Drift-Holds 10 Seconds Limb Ataxia-Must be out of Proportion to Weakness Present: Absent Sensory (Use Pinprick to Test Arms/Legs/Trunk/Face): Normal Best Language (Describe Picture, Name Items): No Aphasia Dysarthria (Read Several Words): Normal Extinction and Inattention: No Abnormality Total Score: 0 Headache Course/Dx - Course Course Of Treatment: Suspect general headache. 60mg toradol given in clinic. F/ u prn - Differential Dx/Diagnosis Provider Diagnoses: Headache Discharge - Sign-Out/Discharge Documenting (check all that apply): Patient Departure - Discharge Plan Condition: Stable Disposition: HOME Patient Education Materials: Tension Headache (ED) Referrals: Everett Mendoza MD [Primary Care Provider] - Additional Instructions: If you develop a fever, dizziness, shortness of breath, chest pain, new or worsening symptoms - please call your PCP or go to the ED. - Billing Disposition and Condition Condition: STABLE Disposition: Home
[2018-06-15] MEDS ORDERED: Ketorolac INJ* 30 MG/ML 1 ML VIAL IM ONE ×2 (12:40→12:49)
== END 2018-06-15 13:03 | disposition home or self-care (01) ==
LOC: UCEAST 12:14
DX: R51 Headache (principal); F31.9 Bipolar disorder, unspecified; F17.210 Nicotine dependence, cigarettes, uncomplicated; Z88.1 Allergy status to other antibiotic agents; Z88.8 Allergy status to other drugs, medicaments and biological substances
CPT/HCPCS: 96372; 99211; G0463; J1885

== ENCOUNTER 2018-06-16 10:05 | Emergency (ER) | payer OTHER ==
[2018-06-16 10:40] VITALS: BP 126/90
--- NOTE | 2018-06-16 10:47 | UC ---
Headache HPI - HPI Summary HPI Summary: Janes, Lisha Tolbert, scribed for attending Nissa Fernandez MD. Pt is a 53 y/o F who presents to ED c/o ABRAHAM since yesterday. ABRAHAM is in the occipital region and neck with radiation upward. On triage, pain is severe ranked 10/10. Took 800 mg x4 of Motrin this morning which did not help. Sx aggravated by nothing, alleviated by Toradol yesterday. Denies any other symptoms including dizziness and changes in vision. Pt was seen by LARA yesterday where she was given 60 mg of Toradol which brought her pain down to 4/ 10, though upon waking up this morning it returned to a 10/10 as it was yesterday. Has seen a neurologist in the past and had a migraine workup, was confirmed she did not have migraines, and was given a Dx of tension headaches. Has never tried Fioricet. - History Of Current Complaint Chief Complaint: UCHeadache Stated Complaint: HEADACHE Time Seen by Provider: 06/16/18 10:40 Hx Obtained From: Patient Hx Last Menstrual Period: [employer] Onset/Duration: Lasting Days - Since yesterday, Still Present Currently Pain Is: Current Pain Scale(0-10)= - 10/10, Severe Pain Intensity: 10 Pain Scale Used: 0-10 Numeric Location of Headache: Occipital Aggravating Factor(s): Nothing Allevating Factor(s): Medication - Toradol Associated Signs And Symptoms: Positive: Negative. Negative: Dizziness, Visual Changes - Allergies/Home Medications Allergies/Adverse Reactions: Allergies Allergy/AdvReac Type Severity Reaction Status Date / Time clonidine Allergy itch Verified 06/16/18 10:36 hydroxyzine Allergy itch Verified 06/16/18 10:36 antibiotic Allergy unk Uncoded 06/16/18 10:36 PMH/Surg Hx/FS Hx/Imm Hx Neurological History: Other Other Neurological History: Headaches Psychological History: Depression - Surgical History Surgical History: Yes Surgery Procedure, Year, and Place: tubal ligation 1993. left and right carpal tunnel - Family History Known Family History: Positive: Cardiac Disease, Hypertension Negative: Diabetes - Social History Alcohol Use: None Substance Use Type: None Smoking Status (MU): Heavy Every Day Tobacco Smoker Type: Cigarettes Amount Used/How Often: 1 ppd Length of Time of Smoking/Using Tobacco: 35 YRS Have You Smoked in the Last Year: Yes Household Exposure Type: Cigarettes - Immunization History Most Recent Influenza Vaccination: never Review of Systems Constitutional: Negative Skin: Negative Eyes: Negative ENT: Negative Respiratory: Negative Cardiovascular: Negative Gastrointestinal: Negative Genitourinary: Negative Motor: Negative Neurovascular: Negative Musculoskeletal: Negative Neurological: Headache Psychological: Negative All Other Systems Reviewed And Are Negative: Yes - Comments Additional Review of Systems Comments: NEGATIVE: Dizziness, visual changes Physical Exam - Summary Physical Exam Summary: Appearance: Well-appearing, Well-nourished Skin: Warm Eyes: Normal ENT: Normal Neck: Supple, nontender Respiratory: Clear to auscultation Cardiovascular: Regular rate, regular rhythm. Normal S1, S2. Abdomen: Soft, nontender Musculoskeletal: Normal, Strength/ROM Intact Neurological: Normal, A&Ox3 Psychiatric: Normal General: Tenderness to palpation around the occiput with radiation to the back of the head Triage Information Reviewed: Yes Vital Signs: Initial Vital Signs Temp 98.8 F 06/16/18 10:30 Pulse 93 06/16/18 10:30 Resp 18 06/16/18 10:30 BP 126/90 06/16/18 10:30 Pulse Ox 96 06/16/18 10:30 Vital Signs Reviewed: Yes Headache Course/Dx - Differential Dx/Diagnosis Provider Diagnoses: Tension headache Discharge - Sign-Out/Discharge Documenting (check all that apply): Patient Departure - Discharge - Discharge Plan Condition: Stable Disposition: HOME Prescriptions: Butalb/Acetamin/Caff TAB* [Fioricet TAB*] 1 tab PO Q6H PRN 5 Days #20 tab MDD 4 PRN Reason: Headache Patient Education Materials: Acute Headache (ED) Referrals: Everett Mendoza MD [Primary Care Provider] - - Billing Disposition and Condition Condition: STABLE Disposition: Home
[2018-06-16] MEDS ORDERED: Ketorolac INJ* 60 MG/2 ML VIAL IM ONE (11:25)
== END 2018-06-16 12:07 | disposition home or self-care (01) ==
LOC: UCEAST 10:05
DX: G44.209 Tension-type headache, unspecified, not intractable (principal); F17.210 Nicotine dependence, cigarettes, uncomplicated; Z88.8 Allergy status to other drugs, medicaments and biological substances; Z88.1 Allergy status to other antibiotic agents
CPT/HCPCS: 96372; 99212; G0463; J1885

== ENCOUNTER 2018-08-14 07:15 | Day surgery (SDC) | payer MEDICARE, OTHER ==
--- NOTE | 2018-08-06 14:18 | HP ---
PREOPERATIVE HISTORY AND PHYSICAL: DATE OF ADMISSION/SURGERY: 08/14/18 [facility] DATE OF OFFICE VISIT/ENCOUNTER: 08/01/18 ATTENDING SURGEON: Licha Perdomo MD * (DICTATED BY YARIEL BANEGAS) PROCEDURE: Left wrist carpal tunnel release, ulnar nerve decompression at the elbow. CHIEF COMPLAINT: Numbness and tingling, left hand. HISTORY OF PRESENT ILLNESS: This is a 53-year-old female, who had a left carpal tunnel release performed back in April of 2016. She did get full resolution of symptoms after surgery; however, several months ago, she began experiencing numbness and tingling in the left hand again, this time including her whole hand. She gets symptoms at nighttime that awaken her and also symptoms into her hand including her pinky when she is bending her elbow talking on the phone or when leans on her elbow. She has tried splinting her elbow at nighttime; however, this has not been helpful for her. Symptoms have become bothersome enough that she is interested in pursuing surgical intervention at this time and has consented to proceed with a left wrist carpal tunnel release and an ulnar nerve decompression at the elbow. PAST MEDICAL HISTORY: 1. Hypothyroidism. 2. Anxiety. 3. Depression. 4. Acid reflux. 5. Migraines. PAST SURGICAL HISTORY: 1. Left carpal tunnel release. 2. Right carpal tunnel release. 3. Tubal ligation. CURRENT MEDICATIONS: 1. Bupropion hydrochloride ER 400 mg daily. 2. Clonazepam 1 mg b.i.d. 3. Levothyroxine sodium 100 mcg daily. 4. Metoclopramide hydrochloride 10 mg 4 times a day p.r.n. 5. Omeprazole 20 mg daily. 6. Pristiq 150 mg daily. 7. Seroquel 300 mg two tabs at bedtime. ALLERGIES: CLONIDINE causes itching. FAMILY MEDICAL HISTORY: Noncontributory. SOCIAL HISTORY: The patient is not working. She is on disability. She is a current smoker, smokes approximately a pack per day and has done so for the past 37 years. She denies recreational drug use and does not drink alcohol. REVIEW OF SYSTEMS: Negative for general, cephalic, cardiovascular, respiratory. GI is positive for occasional nausea, otherwise negative. is negative. Musculoskeletal: Positive for current complaint. Integumentary and endocrine, negative. Neurologic: Positive for anxiety/depression. Hematologic is negative. Infectious disease: Negative for MRSA, hepatitis C, or HIV. No known problems with anesthesia in the past. PHYSICAL EXAMINATION GENERAL: Well-developed, well-nourished, 53-year-old female, in no acute distress. VITAL SIGNS: Height 5 feet 2 inches, weight 200 pounds, pulse rate 84, and blood pressure 118/86. HEENT: Normocephalic and atraumatic. Pupils are equal, round, and reactive to light and accommodation. Extraocular movements are intact. NECK: Supple. No palpable lymph nodes. Throat is clear. PULMONARY: Lungs are clear to auscultation bilaterally. No wheezes, rales, or rhonchi. CARDIOVASCULAR: Regular rate and rhythm. S1 and S2. No murmurs, rubs, or gallops. No edema. ABDOMEN: Positive bowel sounds, soft, and nontender. NEUROLOGIC: Alert and oriented x3. Cranial nerves II through XII are intact. Sensation is intact to light touch. MUSCULOSKELETAL: On exam of her left upper extremity, there is no visible muscular wasting in her hand. She has a positive Tinel's sign at the ulnar nerve at the elbow and a positive Tinel's sign at the median nerve at the wrist. She can make a fist. She has weakness with thumb abduction. Sensation is intact to light touch throughout the hand. IMPRESSION: Recurrent left carpal tunnel syndrome and left ulnar nerve compression at the elbow. PLAN: The patient is scheduled to undergo a left wrist carpal tunnel release and an ulnar nerve decompression at the elbow with Dr. Perdomo on 08/14/18. We will see her back in the office 10 days postop for followup and suture removal. A prescription for [place] was e-scribed to the patient's pharmacy for postoperative pain management. YARIEL BANEGAS [id number]/[facility] #: [id number] MTDBhaskar
[~2018-08-14 07:15] MED LIST: Buffered Lidocaine 0.9% SYRIN* 5 ML/SYR SYRINGE INTRADERM ONE; Dexamethasone TAB* 4 MG PO ONE; DiMENhydriNATE IV* 50 MG/ML VIAL IV PUSH PRN; Famotidine IV* 10 MG/ML 2 ML (20 mg) IV ONE; Naloxone* 0.4 MG/ML 1 ML VIAL IV PRN; Ondansetron TAB* 4 MG PO ONE; PROCHLORPERAZINE INJ 5 MG/ML 2 ML VIAL IV PRN; fentaNYL* 50 MCG/ML 2 ML VIAL (100 MCG VIAL) IV PRN; oxyCODONE/Acetamin 5/325 MG* TAB PO PRN
[2018-08-14] MEDS ORDERED: Dexamethasone TAB* 4 MG ONE (07:23)
[2018-08-14] MEDS ORDERED: Ondansetron ODT TAB* 4 MG ONE (07:23)
[2018-08-14] MEDS ORDERED: ceFAZolin 2 GM in NS PREMIX(*) 2 GM/100 ML BAG IVPB ONE (07:24)
[2018-08-14] MEDS ORDERED: Famotidine IV* 10 MG/ML 2 ML (20 mg) ONE (07:24)
[2018-08-14] MEDS ORDERED: fentaNYL* 50 MCG/ML 2 ML VIAL (100 MCG VIAL) ONE (07:45)
[2018-08-14] MEDS ORDERED: KETAMINE HCL* 50 MG/ML 10 ML VIAL ONE (07:45)
[2018-08-14] MEDS ORDERED: Midazolam* 1 MG/ML 5 ML VIAL (5 MG) ONE (07:46)
[2018-08-14] MEDS ORDERED: Lidocaine 1% INJ* 10 MG/ML 30 ML SDV ONE (08:17)
[2018-08-14] MEDS ORDERED: Propofol* 10 MG/ML 20 ML BTL IV PUSH ONE (09:15)
[2018-08-14] MEDS ORDERED: Ketorolac INJ* 30 MG/ML 1 ML VIAL ONE (09:15)
[2018-08-14] MEDS ORDERED: Lidocaine 2% PF * 5 ML VIAL ONE (09:15)
[2018-08-14 10:16] VITALS: BP 110/69
--- NOTE | 2018-08-15 02:13 | OP ---
DATE OF OPERATION: 08/14/18 - [facility] DATE OF : 63 SURGEON: Licha Perdomo MD POLISHER DIAL: YARIEL Stallworth ANESTHESIA: Local MAC. PRE-OP DIAGNOSES: Left carpal tunnel syndrome, recurrent and ulnar compression at the left elbow. POST-OP DIAGNOSES: Left carpal tunnel syndrome, recurrent and ulnar compression at the left elbow. OPERATIVE PROCEDURE: Left carpal tunnel release and ulnar nerve decompression of the left elbow. INDICATIONS FOR PROCEDURE: Alma Rosa is a 53-year-old woman with numbness and tingling in her left hand and a positive Tinel's sign of the ulnar nerve at the elbow and the median nerve of the wrist. She has had a previous carpal tunnel release and has recurrent symptoms. She presents for left carpal tunnel release and ulnar nerve decompression at the elbow. ESTIMATED BLOOD LOSS: Zero. TOURNIQUET TIME: Approximately 30 minutes. DESCRIPTION OF PROCEDURE: The patient was brought to the operating room, was given a sedation anesthetic and a local infiltration of 10 cc of 1% plain lidocaine at the left elbow and 10 cc of 1% plain lidocaine in the palm of the left hand. Skin of her left upper extremity was prepped and draped in the usual sterile fashion. The upper extremity was exsanguinated and the tourniquet elevated to 250 mmHg. A curvilinear incision was made centered at the medial epicondyle of the elbow and was dissected bluntly through the subcutaneous tissue down to the ulnar nerve proximal to the elbow. The nerve was carefully dissected out proximally and then through the cubital tunnel and distally into the fascia of FCU muscle. The superficial and deep fascia was completely released and the nerve was free both distal and proximal to the elbow. The medial intermuscular septum was incised so that there was not any tight band adjacent to the nerve. The wound was irrigated and the subcutaneous tissue was closed with 3-0 Polysorbs and then the skin edges reapproximated with 4-0 nylon suture. Next, a longitudinal incision was made at the palm in line with ring finger, dissected sharply through the subcutaneous tissues down to the transverse carpal ligament. The ligament was divided sharply with a knife and then more proximally with the scissors. The nerve was dissected free from the surrounding tissue and there was an area of moderate compression at the mid portion of the ligament. The wound was irrigated and the skin edges reapproximated with 4-0 nylon sutures. The wound was dressed with Xeroform, Xeroform, 4x4, Webril, and an Hans wrap. The patient tolerated the procedure well and was brought to the recovery room in good condition. [id number]/[facility] #: [id number] MTDD
== END 2018-08-14 10:25 | disposition home or self-care (01) ==
LOC: OREAST 07:15
PROVIDERS: ATTEND Orthopaedic Surgery
DX: G56.02 Carpal tunnel syndrome, left upper limb (principal); G56.22 Lesion of ulnar nerve, left upper limb; E03.9 Hypothyroidism, unspecified; F41.8 Other specified anxiety disorders; Z72.0 Tobacco use
CPT/HCPCS: A9270-GY; J0690; J1885; J2250; J2704; J3010; J8540

== ENCOUNTER 2018-08-28 13:03 | Emergency (ER) | payer MEDICARE ==
--- OUTSIDE RECORDS SUMMARY | 2018-08-28 13:33 | XMS REPORT ---
:1965 External Reference #:[id number] Author Organization [employer] Address [address] [place] [address] [place] [address] Phone [phone] Care Team Providers Name Role Phone Everett Mendosa MD Primary Care Physician Unavailable Payers Type Date Identification Numbers Payment Provider Subscriber Commercial Effective: Policy Number: [id number] A[employer] Medicare Loreen S McDougal 2017 PayID: [id number] [address] [place] [address] Medigap Part B Expires: 2016 Policy Number: Medicare Alma Rosa Freitas [id number] PayID: [id number] [address] [place] [address] Commercial Effective: 2011 Policy Number: [id number] Ethan Freitas Expires: 2016 Group Name: [id number] [address] PayID: [id number] [place] [address] Problems Date Description Provider Status Onset: 06/18/2015 [...] Strength Qnty SIG Indications Ordering Provider Hydrocodone-Acet 08/01/ Active Tablets 5-325mg 15tabs 1 tab by Licha aminophen 2018 mouth Perdomo, every 4- M.D. 6 hours as needed for pain. Do not take until after surgery. For post-oper ative pain. Hydrocodone-Acet 07/20/ Active Tablets 5-325mg 30tabs 1 by G43.909 Elke vaughan 2016 mouth Stackman, every 6-8 M.D. hours for severe migraine prn. Wrist Splint 06/18/ Active Misc 2units neutral Elke Dunn Open Thumb 2015 or 20 Stackman, extension M.D. ; wear at night for 1 month [...] M.D. 2017 hours for severe migraine prn. [place] 05/26/ Hx Tablets 5-325mg 20tabs 1 by G56.02 Licha 2015 - mouth q6 Perdomo, 06/22/ hour as M.D. 2016 needed pain [place] 05/04/ Hx Tablets 5-325mg 30tabs one to Licha 2015 - two tabs Perdomo, 06/22/ by mouth M.D. 2015 every 4-6 hours as needed pain [place] 03/23/ Hx Tablets 5-325mg 20tabs one tab Licha 2015 - by mouth Perdomo, 05/03/ every 6 M.D. 2016 -8hours as needed pain Hydrocodone-Acet 03/02/ Hx Tablets 5-325mg 30tabs 1 tabs by Licha vaughan 2015 - mouth Perdomo, 04/13/ every 4- M.D. 2016 6 hours as needed pain Hydrocodone-Acet 12/15/ Hx Tablets 5-325mg 30tabs 1 by G43.Peter vaughan 2015 - mouth Bianka, 05/03/ every 6-8 M.D. 2016 hours for sever migraine prn. Gabapentin 09/10/ Hx Capsules 300mg 90caps 1 cap PO Cheryl 2014 - QHS for 3 GnadtSHADE 05/03/ weeks, 2016 then 2 caps PO QHS for 3 weeks, then 3 caps PO QHS Nortriptyline 08/25/ Hx Capsules 10mg 60caps 1-2 caps G43.009 Elke Franz. HCL 2014 - by mouth Bianka, 08/25/ every M.D. 2014 night as directed Zonisamide 08/25/ Hx Capsules 25mg 120cap 1-4 caps G43.009 Elke Dunn 2015 - s by mouth Bianka, 08/30/ every M.D. 2014 night as directed Hydrocodone/Acet 02/03/ Hx Tablets 5-325mg 40tabs 1 tab by G43.Peter Dunn aminophen 2014 - mouth 8h Jamesman, 12/15/ as needed M.D. 2015 Nortriptyline 04/02/ [...] (?) Elke Dunn 0000 - Bianka, 07/09/ Jaiden 2012 Levothyroxine / Hx Tablets 25mcg 1 po qd Unknown Sodium - 2014 Medications Administered in Office Medication Date Status Form Strength Qnty SIG Indications Ordering Provider Depomedrol Administered Injection Licha 40MG 018 Jaiden Perdomo Depomedrol Administered Injection Licha 40MG 018 Jaiden Perdomo Vital Signs Date Vital Result Comment 08/01/2018 Height 62 inches 5'2" Heart Rate 84 /min BP Systolic Sitting 118 mmHg BP Diastolic Sitting 86 mmHg Respiratory Rate 24 /min Body Temperature 98.0 F Pain Level 0 05/31/2018 Height 62 inches 5'2" Weight 200.00 [...] 2 1 Copy Result to: EVERETT MENDOSA ([id number]) 2 Copy Result to: EVERETT MENDOSA ([id number]) Procedures Date CPT Code Description Status 04/25/2018 26310 Injection, Carpal Tunnel Completed 05/17/2016 56435 Carpal Tunnel Release Completed 05/17/2016 25767 Carpal Tunnel Release Completed 03/11/2016 72730 Carpal Tunnel Release Completed 03/11/2016 15137 Carpal Tunnel Release Completed 08/25/2015 63223 Nerve Conduction 07-08 Studies Completed Encounters Type Date Location Provider CPT E/M Dx Office Visit 05/31/2018 [facility] Licha Perdomo 13281 G56.03 9:45a Of [place] Hwang G56.22 Office Visit 03/07/2018 10:15a [facility] [place] Jimenez 55535 G56.03 Mont[place] ANGLIN G56.22 Office Visit 07/20/2017 10:00a [place] Giovany Carlton 45380 G43.909 Services Of Stef Hwang Office Visit 09/22/2016 11:00a [place] Giovany Carlton 60824 G43.909 Services Of Stef Hwang G56.03 Office Visit 05/05/2016 10:45a [place] Carlton 73823 G56.02 Services Of Stef Hwang G56.01 G43.009 Office Visit 03/02/2016 9:30a [facility] Licha Perdomo, 02821 G56.01 Of [place] Hwang G56.02 Office Visit 12/15/2015 9:45a Tati Carlton 18992 G43.009 Services Of Soils Technician M.D. G56.01 G56.02 Office Visit 08/25/2015 1:00p [place] [facility] Elke FranzAmy Carlton, 89373 G43.009 Services Of [employer]ils Technician M.D. G56.01 G56.02 Office Visit 06/18/2015 11:00a [place] [facility] Elke OseiAmy Carlton, 21735 346.10 Services Of [place]ils Technician M.D. 354.0 782.0 Office Visit 02/03/2015 10:30a [facility] Elke Carlton, 23209 346.10 M.D. Office Visit 07/09/2013 11:15a [place] [facility] Elke Carlton, 03101 346.90 Services Of Soils Technician M.D. Office Visit 04/02/2013 10:45a [place] [facility] Elke Carlton, 85901 346.10 Services Of Soils Technician M.D. Office Visit 11/30/2012 11:45a [place] [facility] Elke Carlton, 37140 346.10 Services Of Soils Technician M.D. 354.0 Plan of Care Future Appointment(s):08/23/2018 10:15 am - Licha Perdomo M.D. at [facility]09/20/2018 8:00 am - Joey Dyer M.D. at [place] [facility]08/01/2018 - Licha Perdomo M.D.G56.22 Lesion of ulnar nerve, left upper limbFollow up:Follow up: 9-10 days gpmvdnH82.02 Carpal tunnel syndrome, left upper limbFollow up:postop
--- OUTSIDE RECORDS SUMMARY | 2018-08-28 13:33 | XMS REPORT ---
:1965 External Reference #:[id number] Author Organization [employer] Address [address] [place] [address] [place] [address] Phone [phone] Care Team Providers Name Role Phone Everett Mendosa MD Primary Care Physician Unavailable Payers Type Date Identification Numbers Payment Provider Subscriber Commercial Effective: Policy Number: [id number] [employer] Medicare Loreen S McDougal 2017 PayID: [id number] [address] [place] [address] Medigap Part B Expires: 2016 Policy Number: Medicare Alma Rosa Freitas [id number] PayID: [id number] [address] [place] [address] Commercial Effective: 2011 Policy Number: [id number] Ethan Freitas Expires: 2016 Group Name: [id number] [address] PayID: [id number] [place] [address] Problems Date Description Provider Status Onset: 06/18/2015 [...] M.D. 2017 hours for severe migraine prn. [place] 05/26/ Hx Tablets 5-325mg 20tabs 1 by G56.02 Licha 2015 - mouth q6 Perdomo, 06/22/ hour as M.D. 2016 needed pain [place] 05/04/ Hx Tablets 5-325mg 30tabs one to Licha 2015 - two tabs Perdomo, 06/22/ by mouth M.D. 2015 every 4-6 hours as needed pain [place] 03/23/ Hx Tablets 5-325mg 20tabs one tab [...] Perdomo Vital Signs Date Vital Result Comment 08/23/2018 Height 62 inches 5'2" Heart Rate 78 /min Respiratory Rate 18 /min Body Temperature 98.6 F Pain Level 2 08/01/2018 Height 62 inches 5'2" Heart Rate [...] 2 1 Copy Result to: EVERETT MENDOSA ([id number]) 2 Copy Result to: EVERETT MENDOSA ([id number]) Procedures Date CPT Code Description Status 08/14/2018 68324 Carpal Tunnel Release Completed 08/14/2018 63329 Carpal Tunnel Release Completed 08/14/2018 41651 Neuroplasty &/Or Transposition; Ulnar Nerve AT Elbow Completed 08/14/2018 34407 Neuroplasty &/Or Transposition; Ulnar Nerve AT Elbow Completed 04/25/2018 47559 Injection, Carpal Tunnel Completed 05/17/2016 28020 Carpal Tunnel Release Completed 05/17/2016 09599 Carpal Tunnel Release Completed 03/11/2016 42689 Carpal Tunnel Release Completed 03/11/2016 00119 Carpal Tunnel Release Completed 08/25/2015 48209 Nerve Conduction 07-08 Studies Completed Encounters Type Date Location Provider CPT E/M Dx Office Visit 08/01/2018 [facility] Licha Perdomo 59454 G56.22 1:45p Of [place] Hwang G56.02 Office Visit 05/31/2018 9:45a [facility] Licha Perdomo 81344 G56.03 Of [place] Hwang G56.22 Office Visit 03/07/2018 10:15a [facility] Erin Jimenez 82406 G56.03 Montrell ANGLIN G56.22 Office Visit 07/20/2017 10:00a [place] [facility] Elke Carlton 63860 G43.909 Services Of Stef Hwang Office Visit 09/22/2016 11:00a [facility] [facility] Elke OseiAmy Jamesguerline, 49307 G43.909 Services Of Automatic Machines Supervisor M.D. G56.03 Office Visit 05/05/2016 10:45a [place] [facility] Elke OseiAmy Jamesguerline, 57765 G56.02 Services Of Automatic Machines Supervisor M.D. G56.01 G43.009 Office Visit 03/02/2016 9:30a [facility] Licha Perdomo, 36907 G56.01 Of C.MGiuliana. Jaiden G56.02 Office Visit 12/15/2015 9:45a [place] [facility] Elke OseiAmy Jamesguerline, 25393 G43.009 Services Of Automatic Machines Supervisor M.D. G56.01 G56.02 Office Visit 08/25/2015 1:00p [place] [facility] Elke Carlton, 52141 G43.009 Services Of Automatic Machines Supervisor M.D. G56.01 G56.02 Office Visit 06/18/2015 11:00a [place] [facility] Elke Carlton, 41622 346.10 Services Of Automatic Machines Supervisor M.D. 354.0 782.0 Office Visit 02/03/2015 10:30a [facility] Elke Carlton, 36121 346.10 M.D. Office Visit 07/09/2013 11:15a [place] [facility] Elke Carlton, 06809 346.90 Services Of Automatic Machines Supervisor M.D. Office Visit 04/02/2013 10:45a [place] [facility] Elke Carlton, 96126 346.10 Services Of Automatic Machines Supervisor M.D. Office Visit 11/30/2012 11:45a [place] [facility] Elke Carlton, 60779 346.10 Services Of Automatic Machines Supervisor M.D. 354.0 Plan of Care Future Appointment(s):09/20/2018 10:15 am - Licha Perdomo M.D. at [facility]09/20/2018 8:00 am - Joey Dyer M.D. at [place] [facility]08/23/2018 - Licha Perdomo M.D.G56.22 Lesion of ulnar nerve, left upper limbFollow up:Follow up: 4 weeksRecommendations: Massage scar 3-4 times daily for 5 minutes with cocoa butter or Vitamin E okbbmlD28.02 Carpal tunnel syndrome, left upper limbFollow up:postop
[2018-08-28 13:46] VITALS: BP 127/73
--- NOTE | 2018-08-28 14:02 | UC ---
Headache HPI - HPI Summary HPI Summary: 53-year-old woman comes in with a chief complaint of headache. Started several hours ago at home. It wraps around her whole head. 9 out of 10. Worse with movement. She is not nauseous no problems with vision no weakness or numbness. Patient reports this is her typical headache and that Toradol 60 mg IM fixes IT. 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 left and right carpal tunnel RELEASE- 07/2018 - Family History Known Family History: Positive: Cardiac Disease, Hypertension Negative: Diabetes - Social History Alcohol Use: None Substance Use Type: None Smoking Status (MU): Heavy Every Day Tobacco Smoker Type: Cigarettes Amount Used/How Often: 1 PPD X 40 YEARS Length of Time of Smoking/Using Tobacco: 35 YRS Have You Smoked in the Last Year: Yes When Did the Patient Quit Smoking/Using Tobacco: HAS INFORMATION OF CESSATION Household Exposure Type: Cigarettes - Immunization History Most Recent Influenza Vaccination: never Review of Systems Constitutional: Negative Skin: Negative Eyes: Negative ENT: Negative Respiratory: Negative Cardiovascular: Negative Gastrointestinal: Negative Motor: Negative Neurovascular: Negative Musculoskeletal: Negative Neurological: Headache - SEE HPI Psychological: Negative Is Patient Immunocompromised?: No All Other Systems Reviewed And Are Negative: Yes Physical Exam Triage Information Reviewed: Yes Appearance: Well-Appearing, No Pain Distress, Well-Nourished Vital Signs: Initial Vital Signs Temp 97.3 F 08/28/18 13:41 Pulse 96 08/28/18 13:41 Resp 20 08/28/18 13:41 BP 127/73 08/28/18 13:41 Pulse Ox 96 08/28/18 13:41 Vital Signs Reviewed: Yes Eye Exam: Normal Eyes: Positive: Conjunctiva Clear ENT Exam: Normal ENT: Positive: Normal ENT inspection, Pharynx normal Neck exam: Normal Neck: Positive: Supple, Nontender Respiratory Exam: Normal Respiratory: Positive: Lungs clear, Normal breath sounds, No respiratory distress, No accessory muscle use Cardiovascular Exam: Normal Cardiovascular: Positive: RRR Musculoskeletal Exam: Normal Musculoskeletal: Positive: Strength Intact, ROM Intact Neurological Exam: Normal Neurological: Positive: Alert, Muscle Tone Normal Psychological Exam: Normal Psychological: Positive: Age Appropriate Behavior Skin Exam: Normal Headache Course/Dx - Differential Dx/Diagnosis Provider Diagnoses: HEADACHE Discharge - Sign-Out/Discharge Documenting (check all that apply): Patient Departure All imaging exams completed and their final reports reviewed: No Studies - Discharge Plan Condition: Stable Disposition: HOME Patient Education Materials: Acute Headache (ED) Referrals: Everett Mendoza MD [Primary Care Provider] - Additional Instructions: FOLLOW UP WITH YOUR DOCTOR. GET RECHECKED FOR ANY WORSENING OF YOUR CONDITION OR QUESTIONS OR CONCERNS. - Billing Disposition and Condition Condition: STABLE Disposition: Home
[2018-08-28] MEDS ORDERED: Ketorolac INJ* 60 MG/2 ML VIAL IM ONE (14:03)
== END 2018-08-28 14:25 | disposition home or self-care (01) ==
LOC: UCEAST 13:03
DX: R51 Headache (principal); F17.210 Nicotine dependence, cigarettes, uncomplicated; Z88.8 Allergy status to other drugs, medicaments and biological substances; Z88.1 Allergy status to other antibiotic agents
CPT/HCPCS: 96372; 99211; G0463; J1885

== ENCOUNTER 2018-10-02 09:11 | Day surgery (SDC) | payer MEDICARE ==
--- NOTE | 2018-09-20 15:47 | HP ---
PREOP HISTORY AND PHYSICAL: DATE OF ADMISSION: 10/02/2018. CHIEF COMPLAINT: Numbness and tingling in the right hand. HISTORY OF PRESENT ILLNESS: Alma Rosa is a 53-year-old woman who has numbness and tingling of the right hand involving all of her fingers. She previously had an ulnar nerve decompression at the left elbow and a redo carpal tunnel release on the left recently and these have given her excellent symptomatic relief. She has the same symptoms on the right and presents now for right ulnar nerve decompression at the elbow and right carpal tunnel release. PAST MEDICAL HISTORY: Hypothyroidism, anxiety, depression, acid reflux, and migraines. PAST SURGICAL HISTORY: Left carpal tunnel release, right carpal tunnel release , left ulnar nerve decompression at the elbow, tubal ligation. MEDICATIONS: 1. Bupropion hydrochloride ER 450 mg p.o. daily. 2. Clonazepam 1 mg p.o. b.i.d. 3. Levothyroxine sodium 100 mcg p.o. daily. 4. Metoclopramide hydrochloride 10 mg 4 times daily p.r.n. 5. Omeprazole 20 mg p.o. daily. 6. Pristiq 150 mg p.o. daily. 7. Seroquel 300 mg 2 tablets at bedtime. ALLERGIES: CLONIDINE causes itching. FAMILY MEDICAL HISTORY: Noncontributory. SOCIAL HISTORY: She is not working. She is on disability. She smokes approximately a pack of cigarettes a day for the past 37 years. She denies recreational drug use and does not drink alcohol. REVIEW OF SYSTEMS: Negative for general, cephalic, cardiovascular, respiratory symptoms. GI: Positive for occasional nausea. : Negative. Musculoskeletal : Positive for current complaint. Integumentary and Endocrine: Negative. Neurologic: Positive for anxiety, depression. Hematologic: Negative. Infectious Disease: Negative for MRSA, hepatitis C, and HIV. No known anesthesia problems in the past. PHYSICAL EXAMINATION GENERAL: She is a well-developed, well-nourished 53-year-old female, in no acute distress. VITAL SIGNS: She is 5 feet 2 inches, weighs 200 pounds. Pulse 88, blood pressure 102/80, respirations 16, temperature 96.9. HEENT: Exam is unremarkable. Her eye movements are concentric. NECK: She has good range of motion of her neck without pain. No masses are palpated. LUNGS: Clear to auscultation. Good inspiratory effort. No wheezing. CARDIAC: Regular rate and rhythm without murmur. PERIPHERAL VASCULAR: She has palpable pulses and no peripheral edema. EXTREMITIES: She has a positive Tinel sign at the ulnar nerve of the elbow and the median nerve of the wrist. She can flex and extend her fingers well. Her skin is intact. NEUROLOGICAL: She is alert and oriented without focal deficit. IMPRESSION: Median nerve compression at the right wrist and ulnar nerve compression at the right elbow. PLAN: Plan is for right ulnar nerve decompression at the elbow and a right carpal tunnel release. The patient will follow up for recheck approximately 10 days postop. [id number]/[facility] #: [id number] MATY
[~2018-10-02 09:11] MED LIST changes: +Dexamethasone IV* 4 MG/ML 1 ML (4 MG) IV SLOW PU ONE; -Dexamethasone TAB* 4 MG PO ONE; -DiMENhydriNATE IV* 50 MG/ML VIAL IV PUSH PRN; -Naloxone* 0.4 MG/ML 1 ML VIAL IV PRN; -Ondansetron TAB* 4 MG PO ONE; -PROCHLORPERAZINE INJ 5 MG/ML 2 ML VIAL IV PRN; -fentaNYL* 50 MCG/ML 2 ML VIAL (100 MCG VIAL) IV PRN; -oxyCODONE/Acetamin 5/325 MG* TAB PO PRN
[2018-10-02] MEDS ORDERED: Famotidine IV* 10 MG/ML 2 ML (20 mg) ONE (09:17)
[2018-10-02] MEDS ORDERED: Dexamethasone IV* 4 MG/ML 1 ML (4 MG) ONE (09:17)
[2018-10-02] MEDS ORDERED: ceFAZolin 2 GM PREMIX in ORs 2 GM/50 ML BAG IVPB ONE (09:43)
[2018-10-02] MEDS ORDERED: fentaNYL* 50 MCG/ML 2 ML VIAL (100 MCG VIAL) ONE (11:15)
[2018-10-02] MEDS ORDERED: Midazolam* 1 MG/ML 2 ML VIAL (2 MG) ONE (11:15)
[2018-10-02] MEDS ORDERED: Lidocaine 1% INJ* 10 MG/ML 30 ML SDV ONE (11:52)
[2018-10-02] MEDS ORDERED: Propofol* 10 MG/ML 20 ML BTL IV PUSH ONE ×2 (12:02→14:25)
[2018-10-02 13:33] VITALS: BP 122/90
--- NOTE | 2018-10-03 09:48 | OP ---
DATE OF OPERATION: 10/02/[address] [facility] DATE OF : 63 SURGEON: Licha Perdomo MD DIRECTOR OF TRAUMA: YARIEL Stallworth. ANESTHESIA: Local MAC. PRE-OP DIAGNOSIS: Recurrent right carpal tunnel syndrome and ulnar nerve compression at the right elbow. POST-OP DIAGNOSIS: Recurrent right carpal tunnel syndrome and ulnar nerve compression at the right elbow. OPERATIVE PROCEDURE: Right carpal tunnel release, which was a redo and ulnar nerve decompression at the right elbow. INDICATIONS: Alma Rosa is a 53-year-old woman who has had a right carpal tunnel release in the past. She has recurrent symptoms and presents for redo right carpal tunnel release. Additionally, she has ulnar nerve symptoms on the right hand and positive Tinel sign of the ulnar nerve at the right elbow. She presents for right elbow ulnar nerve decompression. ESTIMATED BLOOD LOSS: Zero. TOURNIQUET TIME: About 35 units. DESCRIPTION OF PROCEDURE: The patient was brought to the operating room, was given a sedation anesthetic and a local infiltration of 20 cc of 1% plain lidocaine half at the right elbow and half at the right hand. The skin of her right upper extremity was prepped and draped in the usual sterile fashion. The hand and forearm were exsanguinated and the tourniquet elevated to 250 mmHg. A longitudinal incision was made in the palm in the previous scar. We dissected through the subcutaneous tissue down to the transverse carpal ligament, which had reformed. This was incised longitudinally. There was some scarring around the median nerve and this was carefully dissected away into the palm and then into the distal aspect of the wrist. The nerve appeared to be in good condition. The wound was irrigated and the skin edges were reapproximated with 4-0 nylon suture. The wound was dressed with Xeroform, 4x4, Webril, and an Hans wrap after the elbow procedure was done. Next, a curvilinear incision was made , centered between the medial epicondyle and the tip of the olecranon process. We dissected through the subcutaneous tissue down to the ulnar nerve proximal to the elbow joint. The nerve was carefully dissected out proximally and distally with care to preserve the medial antebrachial cutaneous nerve. The FCU fascia, superficial and deep was divided and the nerve appeared to be maximally compressed at the Aparicio's ligament. The wound was irrigated with saline, subcutaneous tissue closed with 3-0 Polysorb and the skin with skin aurelio. The wounds were dressed with Xeroform, 4x4, Webril, and an Hans wrap. The patient tolerated the procedure well, was brought to the recovery room in good condition. [id number]/[facility] #: [id number]
== END 2018-10-02 13:32 | disposition home or self-care (01) ==
LOC: OREAST 09:11
PROVIDERS: ATTEND Orthopaedic Surgery
DX: G56.01 Carpal tunnel syndrome, right upper limb (principal); G56.21 Lesion of ulnar nerve, right upper limb; E03.9 Hypothyroidism, unspecified; F41.8 Other specified anxiety disorders; Z72.0 Tobacco use
CPT/HCPCS: J0690; J1100; J2250; J2704; J3010

== ENCOUNTER 2018-12-07 11:32 | Emergency (ER) | payer MEDICARE ==
--- OUTSIDE RECORDS SUMMARY | 2018-12-07 11:37 | XMS REPORT | Continuity of Care Document ---
:1965 External Reference #:[id number] Author Name Jessi Galicia Care Team Providers Name Role Phone Everett Mendosa MD Primary Care Physician Unavailable Payers Type Date Identification Numbers Payment Provider Subscriber Policy Number: [id number] Medicare Loreen S McDougal PayID: [id number] [facility] [address] Effective: 2017 Policy Number: [id number] [employer] Medicare Loreen S McDougal Expires: 2018 PayID: [id number] [address] [place] [address] Expires: 2016 Policy Number: [id number] Medicare Loreen S McDougal PayID: [id number] [address] [place] [address] Effective: 2011 Policy Number: [id number] Ewingjami Freitas Expires: 2016 Group Name: [id number] [address] PayID: [id number] [place] [address] Advance Directives Description No Information Available Problems Date Description Provider Status Onset: 06/18/2015 Migraine without aura Elke Carlton M.D. Active Onset: 06/18/2015 Carpal tunnel syndrome Elke Carlton M.D. Active Family History Description No Information Available Social History Type Date Description Comments Sex Unknown Lives With Alone ETOH Use Denies alcohol use Tobacco Use Start: Unknown Heavy tobacco smoker (more than 10 cigarettes/day) Smoking Status Reviewed: 11/29/18 Heavy tobacco smoker (more than 10 cigarettes/day) Exercise Type/Frequency Does not exercise Allergies, Adverse Reactions, Alerts Date Description Reaction Status Severity Comments 03/02/2016 Clonidine Active 07/09/2013 NKDA Inactive Medications Medication Date Status Form Strength Qnty SIG Indications Ordering Provider Wrist Splint 06/18/ Active Misc 2units neutral Elke Dunn Open Thumb 2014 or 20 ghulam Carlton M.D. ; wear at night for 1 [...] three times a day as needed Hydrocodone-Acet 08/01/ Hx Tablets 5-325mg 15tabs 1 tab by Licha vaughan 2017 - mouth Perdomo, 10/31/ every 4- M.D. 2017 6 hours as needed for pain. Hydrocodone-Acet 07/20/ Hx Tablets 5-325mg 30tabs 1 by G43.909 Elke vaughan 2016 - mouth Stackman, 10/31/ every 6-8 M.D. 2018 hours for severe migraine prn. Hydrocodone-Acet 09/23/ Hx Tablets 5-325mg 30tabs 1 by Elke vaughan 2015 - mouth Stackman, 07/19/ every 6-8 M.D. 2017 hours for severe migraine prn. [place] 05/26/ Hx Tablets 5-325mg 20tabs 1 by G56.02 Licha 2015 - mouth q6 Perdomo, 06/22/ hour as M.D. 2015 needed pain [place] 05/04/ Hx Tablets 5-325mg 30tabs one to Licha 2015 - two tabs Perdomo, 06/22/ by mouth M.D. 2015 every 4-6 hours as needed pain [place] 03/23/ Hx Tablets 5-325mg 20tabs one tab Licha 2015 - by mouth Perdomo, 05/03/ every 6 M.D. 2016 -8hours as needed pain Hydrocodone-Acet 03/02/ Hx Tablets 5-325mg 30tabs 1 tabs by Licha vaughan 2015 - mouth Perdomo, 04/13/ every 4- M.D. 2016 6 hours as needed pain Hydrocodone-Acet 12/15/ Hx Tablets 5-325mg 30tabs 1 by G43.Peter vaughan 2016 - mouth Stackguerline, 05/03/ every 6-8 M.D. 2016 hours for sever migraine prn. Gabapentin 09/10/ Hx Capsules 300mg 90caps 1 cap PO Cheryl 2014 - QHS for 3 Gnadt, SADDLE CUTTER 05/03/ weeks, 2016 then 2 caps PO QHS for 3 weeks, then 3 caps PO QHS Nortriptyline 08/25/ Hx Capsules 10mg 60caps 1-2 caps G43.Peter MORRIS 2014 - by mouth Bianka, 08/25/ every M.D. 2014 night as directed Zonisamide 08/25/ Hx Capsules 25mg 120cap 1-4 caps G43.009 Elke Dunn 2015 - s by mouth Bianka, 08/30/ every M.D. 2014 night as directed Hydrocodone/Acet 02/03/ Hx Tablets 5-325mg 40tabs 1 tab by [email or web address].Peter Dunn aminoadryan 2014 - mouth 8h Jamesman, 12/15/ as needed M.D. 2015 Nortriptyline 04/02/ Hx Capsules 10mg 90caps 1-3 tabs Elke MORRIS 2012 - by mouth Bianka, 01/25/ every M.D. 2014 night as directed Hydrocodone/Acet 04/02/ Hx Tablets 5-325mg 40tabs 1 tab po Elke Dunn aminoadryan 2012 - 8h prn Bianka, 01/25/ M.D. 2014 Naproxen 11/30/ Hx Tablets 250mg 45tabs 1 - 2 Elke Dunn 2012 - tabs by Bianka, 01/25/ mouth M.D. 2014 every 12 hours as needed Topiramate 11/30/ Hx Tablets 100mg 120tab 2 tablets Cheryl 2012 - s by mouth Parveen, SADDLE CUTTER 06/17/ twice a 2014 day Pristiq / Hx Tab 50mg 3 tabs po Unknown 0000 - daily 07/27/ 2016 Wellbutrin 00/00/ Hx Tablet 1 tab po Unknown 0000 - daily in 2015 to 150mg tab Topiramate / Hx Tablets 200mg 60tabs (?) Elke Lazo - Bianka 07/09/ Jaiden 2012 Levothyroxine / Hx Tablets 25mcg 1 po qd Unknown Sodium 0000 - 2014 Medications Administered in Office Medication Date Status Form Strength Qnty SIG Indications Ordering Provider Depomedrol Administered Injection Licha 40MG 018 Jaiden Perdomo Depomedrol Administered Injection Licha 40MG 018 Jaiden Perdomo Immunizations Description No Information Available Vital Signs Date Vital Result Comment 11/29/2018 9:54am Height 62 inches 5'2" Weight 200.00 lb BP Systolic 114 mmHg BP Diastolic 62 mmHg Respiratory Rate 15 /min Body Temperature 96.6 F Pain Level 0 BMI (Body Mass Index) 36.6 kg/m2 11/01/2018 11:27am Height 62 inches 5'2" Weight 200.00 lb Heart Rate 88 /min Respiratory Rate 16 /min Body Temperature 97.0 F Pain Level 0 BMI (Body Mass Index) 36.6 kg/m2 10/19/2018 11:45am Height 62 inches 5'2" Weight 200.00 lb Heart Rate 76 /min Respiratory Rate 16 /min Body Temperature 97.6 F Pain Level 5 BMI (Body Mass Index) 36.6 kg/m2 10/16/2018 1:08pm Height 62 inches 5'2" BP Systolic 122 mmHg BP Diastolic 84 mmHg Respiratory Rate 17 /min Body Temperature 97.5 F Pain Level 0 09/20/2018 10:15am Height 62 inches 5'2" Heart Rate 88 /min BP Systolic Sitting 102 mmHg BP Diastolic Sitting 80 mmHg Respiratory Rate 16 /min Body Temperature 96.9 F Pain Level 1 08/23/2018 10:23am Height 62 inches 5'2" Heart Rate 78 /min Respiratory Rate 18 /min Body Temperature 98.6 F Pain Level 2 08/01/2018 1:54pm Height 62 inches 5'2" Heart Rate 84 /min BP Systolic Sitting 118 mmHg BP Diastolic Sitting 86 mmHg Respiratory Rate 24 /min Body Temperature 98.0 F Pain Level 0 05/31/2018 10:17am Height 62 inches 5'2" Weight 200.00 lb Heart Rate 84 /min Respiratory Rate 22 /min Body Temperature 96.5 F Pain Level 0 BMI (Body Mass Index) 36.6 kg/m2 04/25/2018 9:45am Height 62 inches 5'2" Heart Rate 96 /min BP Systolic 118 mmHg BP Diastolic 70 mmHg Respiratory Rate 16 /min Body Temperature 98.3 F Pain Level 1 03/07/2018 10:33am Height 62 inches 5'2" Weight 193.00 lb BP Systolic 132 mmHg BP Diastolic 82 mmHg Respiratory Rate 18 /min Body Temperature 97.2 F Pain Level 0 BMI (Body Mass Index) 35.3 kg/m2 07/20/2017 10:01am Height 62 inches 5'2" Weight 200.25 lb Heart Rate 68 /min BP Systolic Sitting 188 mmHg BP Diastolic Sitting 82 mmHg Respiratory Rate 16 /min BMI (Body Mass Index) 36.6 kg/m2 09/22/2016 10:56am Height 62 inches 5'2" Weight 181.00 lb Heart Rate 60 /min BP Systolic Sitting 116 mmHg BP Diastolic Sitting 80 mmHg Respiratory Rate 14 /min BMI (Body Mass Index) 33.1 kg/m2 08/10/2016 9:25am Height 62 inches 5'2" Weight 176.00 lb Heart Rate 60 /min Respiratory Rate 16 /min Pain Level 0 BMI (Body Mass Index) 32.2 kg/m2 06/23/2016 2:29pm Height 62 inches 5'2" Weight 195.00 lb BMI (Body Mass Index) 35.7 kg/m2 06/01/2016 2:25pm Height 62 inches 5'2" Weight 195.00 lb Pain Level 10 BMI (Body Mass Index) 35.7 kg/m2 05/26/2016 2:55pm Height 62 inches 5'2" Weight 195.00 lb Heart Rate 60 /min Respiratory Rate 16 /min Pain Level 5 BMI (Body Mass Index) 35.7 kg/m2 05/05/2016 10:45am Height 62 inches 5'2" Weight 192.00 lb Heart Rate 80 /min BP Systolic Sitting 118 mmHg BP Diastolic Sitting 78 mmHg Respiratory Rate 14 /min BMI (Body Mass Index) 35.1 kg/m2 05/04/2016 4:30pm Height 62 inches 5'2" Weight 192.00 lb Heart Rate 95 /min BP Systolic 108 mmHg BP Diastolic 83 mmHg BMI (Body Mass Index) 35.1 kg/m2 04/14/2016 10:31am Height 62 inches 5'2" Weight 192.00 lb Pain Level 9 BMI (Body Mass Index) 35.1 kg/m2 03/23/2016 1:31pm Height 62 inches 5'2" Weight 192.00 lb Respiratory Rate 16 /min Body Temperature 98.6 F Pain Level 7 BMI (Body Mass Index) 35.1 kg/m2 03/02/2016 11:25am Height 62 inches 5'2" Weight 191.00 lb Heart Rate 70 /min BP Systolic 110 mmHg BP Diastolic 72 mmHg Pain Level 10 BMI (Body Mass Index) 34.9 kg/m2 12/15/2015 9:47am Height 62 inches 5'2" Weight 191.00 lb Heart Rate 60 /min BP Systolic Sitting 116 mmHg BP Diastolic Sitting 82 mmHg Respiratory Rate 14 /min BMI (Body Mass Index) 34.9 kg/m2 08/25/2015 1:07pm Height 62 inches 5'2" Heart Rate 72 /min BP Systolic Sitting 112 mmHg BP Diastolic Sitting 74 mmHg Respiratory Rate 16 /min 06/18/2015 11:23am Height 62 inches 5'2" Weight 184.00 lb Heart Rate 68 /min BP Systolic Sitting 116 mmHg BP Diastolic Sitting 80 mmHg Respiratory Rate 16 /min BMI (Body Mass Index) 33.7 kg/m2 02/03/2015 10:35am Height 62 inches 5'2" Weight 178.00 lb Heart Rate 92 /min BP Systolic Sitting 102 mmHg BP Diastolic Sitting 78 mmHg Respiratory Rate 16 /min BMI (Body Mass Index) 32.6 kg/m2 07/09/2013 11:27am Height 62 inches 5'2" Weight 190.00 lb Heart Rate 100 /min BP Systolic Sitting 108 mmHg BP Diastolic Sitting 76 mmHg Respiratory Rate 16 /min BMI (Body Mass Index) 34.7 kg/m2 11/30/2012 11:58am Heart Rate 78 /min BP Systolic 118 mmHg BP Diastolic 76 mmHg Respiratory Rate 14 /min Results Test Date Facility Test Result H/L Range Note Laboratory test 07/20/2017 [facility] TSH 0.77 mcIU/mL N 0.34- 5.[address] ([place] [address] Stim Horm) [phone] Free T4 (Free Thyroxine) 0.64 ng/dL N 0.61-1.12 Laboratory test 12/15/2015 [facility] Free T4 (Free 0.51 Low 0.61-1.[address] Thyroxine) ng/[place] [address] [phone] TSH (Thyroid Stim Horm) 3.50 ?IU/mL N 0.34-5.60 2 1 Copy Result to: EVERETT MENDOSA ([id number]) 2 Copy Result to: EVERETT MENDOSA ([id number]) Procedures Date Code Description Status 10/02/2018 70448 Carpal Tunnel Release Completed 10/02/2018 91932 Carpal Tunnel Release Completed 10/02/2018 60899 Neuroplasty &/Or Transposition; Ulnar Nerve AT Elbow Completed 10/02/2018 18126 Neuroplasty &/Or Transposition; Ulnar Nerve AT Elbow Completed 08/14/2018 33631 Carpal Tunnel Release Completed 08/14/2018 16333 Carpal Tunnel Release Completed 08/14/2018 22470 Neuroplasty &/Or Transposition; Ulnar Nerve AT Elbow Completed 08/14/2018 00874 Neuroplasty &/Or Transposition; Ulnar Nerve AT Elbow Completed 04/25/2018 56639 Injection, Carpal Tunnel Completed 05/17/2016 54586 Carpal Tunnel Release Completed 05/17/2016 90319 Carpal Tunnel Release Completed 03/11/2016 23250 Carpal Tunnel Release Completed 03/11/2016 87334 Carpal Tunnel Release Completed 08/25/2015 35626 Nerve Conduction 07-08 Studies Completed Encounters Type Date Location Provider Dx Diagnosis Office Visit 09/20/2018 Orthopedic Licha Perdomo G56.21 Lesion of ulnar 10:15a [facility] nerve, right upper limb G56.01 Carpal tunnel syndrome, right upper limb Office Visit 08/01/2018 1:45p Jean Perdomo G56.22 Lesion of [facility]ly[facility] Hwang ulnar nerve, left upper limb G56.02 Carpal tunnel syndrome, left upper limb Office Visit 05/31/2018 9:45a Jean Perdomo G56.03 Carpal tunnel [facility].Dereck syndrome, C.M.A. bilateral upper limbs G56.22 Lesion of ulnar nerve, left upper limb Office Visit 03/07/2018 10:15a Orthopedic Erin Jimenez, G56.03 Carpal tunnel [facility] syndrome, C.M.A. bilateral upper limbs G56.22 Lesion of ulnar nerve, left upper limb Office Visit 07/20/2017 Tati Dunn G43.909 Migraine, unsp, 10:00a Giovany Carlton M.D. not intractable, [facility] without status migrainosus Office Visit 09/22/2016 Tati Dunn G43.909 Migraine, unsp, 11:00a Giovany Carlton M.D. not intractable, [facility] without status migrainosus G56.03 Carpal tunnel syndrome, bilateral upper limbs Office Visit 05/05/2016 10:45a [facility] Giovany Dunn G56.02 Carpal tunnel Services Of Stef Carlton M.D. syndrome, left upper limb G56.01 Carpal tunnel syndrome, right upper limb G43.009 Migraine w/o aura, not intractable, w/o status migrainosus Office Visit 03/02/2016 9:30a Orthopedic Licha Perdomo, G56.01 Carpal tunnel Services [facility] M.DAmy syndrome, right C.M.A. upper limb G56.02 Carpal tunnel syndrome, left upper limb Office Visit 12/15/2015 Tati Dunn G43.009 Migraine w/o aura, 9:45a Giovany Carlton M.D. not intractable, [facility] w/o status migrainosus G56.01 Carpal tunnel syndrome, right upper limb G56.02 Carpal tunnel syndrome, left upper limb Office Visit 08/25/2015 Tati Dunn G43.009 Migraine w/o aura, 1:00p Giovany Carlton M.D. not intractable, [facility] w/o status migrainosus G56.01 Carpal tunnel syndrome, right upper limb G56.02 Carpal tunnel syndrome, left upper limb Office Visit 06/18/2015 11:00a Tati Dunn 346.10 Migraine Common Giovany Carlton M.D. W/O Intractable [facility] W/O Status Migrainosus 354.0 Carpal Tunnel Syndrome 782.0 Skin Sensation Disturbance Office Visit 02/03/2015 Neurohospital[facility] Elke Dunn 346.10 Migraine Common 10:30a Clinic Jaiden Carlton W/O Intractable W/O Status Migrainosus Office Visit 07/09/2013 [facility] Elke Dunn 346.90 Migraine Unspec 11:15a [facility] Jaiden Carlton W/O Intractable W/O Status Migrainosus Office Visit 04/02/2013 [place] Giovany Dunn 346.10 Migraine Common 10:45a [facility] Jaiden Carlton W/O Intractable W/O Status Migrainosus Office Visit 11/30/2012 [facility] Elke Dunn 346.10 Migraine Common 11:45a [facility] Jaiden Carlton W/O Intractable W/O Status Migrainosus 354.0 Carpal Tunnel Syndrome Plan of Treatment Future Appointment(s):12/21/2018 10:15 am - Joey Dyer M.D. at [facility]11/29/2018 - Licha Perdomo M.D.G56.01 Carpal tunnel syndrome, right upper limbFollow up:Follow up: As vagerqB44.21 Lesion of ulnar nerve, right upper limb
[2018-12-07 11:46] VITALS: BP 121/82
[2018-12-07] MEDS ORDERED: Ketorolac INJ* 30 MG/ML 1 ML VIAL IM ONE (11:57)
--- NOTE | 2018-12-07 12:05 | UC ---
Headache HPI - HPI Summary HPI Summary: Patient is a 53-year-old female that awoke with her typical headache this morning. The headache is all cranial. She states it is 10 out of 10. She states that this is her typical headache that she gets. Had this similar headache since the ninth grade. She gets one to 4 of these headaches every year. She is followed by a neurologist. She has had CTs and MRIs of her brain in the past and they have been normal. She denies any photophobia. She denies any nausea vomiting or diarrhea. She states that her headaches typically resolve completely after receiving a shot of Toradol. - History Of Current Complaint Chief Complaint: UCHeadache Stated Complaint: HEADACHE Time Seen by Provider: 12/07/18 11:51 Hx Obtained From: Patient Hx Last Menstrual Period: BOBBIN HAULER Onset/Duration: Gradual Onset, Lasting Hours Onset Of Symptoms: Still Present Initially Headache Was: Severe Currently Pain Is: Severe Pain Intensity: 10 Pain Scale Used: 0-10 Numeric Timing: Constant Character: Throbbing, Typical Headache Location of Headache: Diffuse Aggravating Factor(s): Nothing Allevating Factor(s): Nothing Associated Signs And Symptoms: Positive: Negative - Allergies/Home Medications Allergies/Adverse Reactions: Allergies Allergy/AdvReac Type Severity Reaction Status Date / Time clonidine Allergy Intermediate itch Verified 12/07/18 11:46 hydroxyzine Allergy Intermediate itch Verified 12/07/18 11:46 antibiotic AdvReac Intermediate Vomiting Uncoded 12/07/18 11:46 PMH/Surg Hx/FS Hx/Imm Hx Previously Healthy: Yes - Surgical History Surgical History: Yes Surgery Procedure, Year, and Place: tubal ligation 1993. left and right carpal tunnel RELEASE- 07/2018 - Family History Known Family History: Positive: Cardiac Disease, Hypertension Negative: Diabetes - Social History Alcohol Use: None Substance Use Type: None Smoking Status (MU): Heavy Every Day Tobacco Smoker Type: Cigarettes Amount Used/How Often: 1 PPD X 40 YEARS Length of Time of Smoking/Using Tobacco: 35 YRS Have You Smoked in the Last Year: Yes When Did the Patient Quit Smoking/Using Tobacco: HAS INFORMATION OF CESSATION Household Exposure Type: Cigarettes - Immunization History Most Recent Influenza Vaccination: never Review of Systems All Other Systems Reviewed And Are Negative: Yes Constitutional: Positive: Negative Skin: Positive: Negative Eyes: Positive: Negative ENT: Positive: Negative Respiratory: Positive: Negative Cardiovascular: Positive: Negative Gastrointestinal: Positive: Negative Genitourinary: Positive: Negative Motor: Positive: Negative Neurovascular: Positive: Negative Musculoskeletal: Positive: Negative Neurological: Positive: Headache Psychological: Positive: Negative Physical Exam Triage Information Reviewed: Yes Appearance: Well-Appearing, No Pain Distress, Well-Nourished Vital Signs: Initial Vital Signs Temp 97 F 12/07/18 11:42 Pulse 93 12/07/18 11:42 Resp 18 12/07/18 11:42 BP 121/82 12/07/18 11:42 Pulse Ox 97 12/07/18 11:42 Vital Signs Reviewed: Yes Eyes: Positive: Conjunctiva Clear, Other: - eomi/perrl ENT: Positive: Hearing grossly normal, Uvula midline. Negative: Tonsillar exudate, Trismus Neck: Positive: Supple, Nontender, No Lymphadenopathy Respiratory: Positive: Lungs clear, Normal breath sounds, No respiratory distress, No accessory muscle use Cardiovascular: Positive: RRR, No Murmur Musculoskeletal: Positive: ROM Intact, No Edema Neurological: Positive: Alert, Other: - GCS15/15, DTRs deminished but equal Psychological Exam: Normal Skin Exam: Normal Headache Course/Dx - Differential Dx/Diagnosis Provider Diagnosis: Acute headache Discharge - Sign-Out/Discharge Documenting (check all that apply): Patient Departure All imaging exams completed and their final reports reviewed: No Studies - Discharge Plan Condition: Stable Disposition: HOME Patient Education Materials: Acute Headache (ED) Referrals: Everett Mendoza MD [Primary Care Provider] - If Needed Additional Instructions: recheck in 12-24 hours if not completely better - Billing Disposition and Condition Condition: STABLE Disposition: Home
== END 2018-12-07 12:18 | disposition home or self-care (01) ==
LOC: UCEAST 11:32
DX: R51 Headache (principal); Z88.1 Allergy status to other antibiotic agents; Z88.8 Allergy status to other drugs, medicaments and biological substances; F17.210 Nicotine dependence, cigarettes, uncomplicated
CPT/HCPCS: 96372; 99211; G0463; J1885

== ENCOUNTER 2019-06-20 10:24 | Emergency (ER) | payer MEDICARE ==
--- OUTSIDE RECORDS SUMMARY | 2019-06-20 10:31 | XMS REPORT | Continuity of Care Document ---
:1965 External Reference #:[id number] Author Name Kassie Duran Care Team Providers Name Role Phone Everett Mendosa MD Primary Care Physician Unavailable Payers Date Identification Numbers Payment Provider Subscriber Effective: 2019 Policy Number: [id number] [employer] Loreen S McDougal PayID: [id number] [address] [place] [address] Expires: 2019 Policy Number: [id number] [employer] Alma Rosa Freitas PayID: [id number] [address] [address] Attn: [place] [address] Effective: 2017 Policy Number: [id number] [employer] Alma Rosa Freitas Expires: 2018 PayID: [id number] [address] [place] [address] Expires: 2016 Policy Number: [id number] Medicare Loreen S McDougal PayID: [id number] [address] [facility] [address] Effective: 2011 Policy Number: [id number] [place] Alma Rosa Freitas Expires: 2016 Group Name: [id number] [address] PayID: [id number] [place] [address] Expires: 2018 Policy Number: [id number] Medicare Loreen S McDougal PayID: [id number] [address] [place] [address] Problems Active Problems Provider Date Migraine without aura Elke Carlton M.D. Onset: 06/18/2015 Carpal tunnel syndrome Elke Carlton M.D. Onset: 06/18/2015 Social History Type Date Description Comments Sex Unknown Lives With Alone ETOH Use Denies alcohol use Tobacco Use Start: Unknown Heavy tobacco smoker (more than 10 cigarettes/day) Smoking Status Reviewed: 06/11/19 Heavy tobacco smoker (more than 10 cigarettes/day) Exercise Type/Frequency Does not exercise Allergies, Adverse Reactions, Alerts Active Allergies Reaction Severity Comments Date Clonidine Itching Mild 03/02/2016 Hydromet Itching Mild 06/11/2019 Inactive Allergies NKDA 07/09/2013 Medications Active Medications SIG Qnty Indications Ordering Date Provider Amitriptyline HCL take 1 tablets 60tabs G43.009 Gerard Johnson 06/11/2019 10mg every night at Jaiden Harrell Tablets bedtime for 2 weeks then take 2 tablets at bedtime Sumatriptan Succinate 1 tab po bid prn 9tabs G43.009 Gerard Johnson 06/11/2019 100mg headache max 2 Jaiden Harrell Tablets days a week Wrist Splint Open Thumb neutral or 20 2units Elke Dunn 06/18/2015 extension; kiley Carlton M.D. Misc at night for 1 month Clonazepam 1 tab po tid 60tabs Unknown 1mg Tablets Seroquel 2 tabs po qhs Unknown 300mg Tab Metoclopramide HCL 1 po qid prn 40tabs Unknown 10mg Tablets Omeprazole 1 po qd Unknown 20mg Capsules DR Levothyroxine Sodium 1 by mouth every Unknown 100mcg day Tablets Bupropion HCL ER (SR) qd Unknown 450mg Tablets ER 12HR Effexor XR 1 by mouth every Unknown 150mg Caps ER day 24HR Ibuprofen by mouth three Unknown 800mg Tablets times a day as needed Ritalin 1 by mouth prn Unknown 10mg Tablets History Medications Hydrocodone-Acetaminophen 1 tab by 15tabs Licha 08/01/2018 - 5-325mg Tablets mouth cailin Perdomo M.D. 10/31/2018 4- 6 hours as needed for pain. Hydrocodone-Acetaminophen 1 by mouth 30tabs G43.9 Elke Dunn 07/20/2017 - 5-325mg Tablets every 6-8 09 Jaiden Carlton 10/31/2018 hours for severe migraine prn. Hydrocodone-Acetaminophen 1 by mouth 30tabs Elke Dunn 09/23/2016 - 5-325mg Tablets every 6-8 Jaiden Carlton 07/19/2017 hours for severe migraine prn. [place] 1 by mouth q6 20tabs G56.0 Licha 05/26/2016 - 5-325mg Tablets hour as 2 Jaiden Perdomo 06/22/2016 needed pain [place] one to two 30tabs Licha 05/04/2016 - 5-325mg Tablets tabs by mouth Jaiden Perdomo 06/22/2016 every 4-6 hours as needed pain [place] one tab by 20tabs Licha 03/23/2016 - 5-325mg Tablets mouth every 6 Jaiden Perdomo 05/03/2016 -8hours as needed pain Hydrocodone-Acetaminophen 1 tabs by 30tabs Licha 03/02/2016 - 5-325mg Tablets mouth every Jaiden Perdomo 04/13/2016 4- 6 hours as needed pain Hydrocodone-Acetaminophen 1 by mouth 30tabs G43.0 Elke Dunn 12/15/2015 - 5-325mg Tablets every 6-8 09 Jaiden Carlton 05/03/2016 hours for sever migraine prn. Gabapentin 1 cap PO QHS 90caps Cheryl Saini 09/10/2015 - 300mg Capsules for 3 weeks, [employer] 05/03/2016 then 2 caps PO QHS for 3 weeks, then 3 caps PO QHS Nortriptyline HCL 1-2 caps by 60caps G43.0 Elke Dunn 08/25/2015 - 10mg Capsules mouth every 09 Jaiden Carlton 08/25/2015 night as directed Zonisamide 1-4 caps by 120caps G43.0 Elke Dunn 08/25/2015 - 25mg Capsules mouth every 09 Jaiden Carlton 08/30/2015 night as directed Hydrocodone/Acetaminophen 1 tab by 40tabs G43.0 Elke Dunn 02/03/2015 - 5-325mg Tablets mouth 8h as 09 Jaiden Carlton 12/15/2015 needed Nortriptyline HCL 1-3 tabs by 90caps Elke Dunn 04/02/2013 - 10mg Capsules mouth every Jaiden Carlton 01/25/2015 night as directed Hydrocodone/Acetaminophen 1 tab po 8h 40tabs Elke Dunn 04/02/2013 - 5-325mg Tablets prn Jaiden Carlton 01/25/2015 Naproxen 1 - 2 tabs 45tabs Elke Dunn 11/30/2012 - 250mg Tablets by mouth Jaiden Carlton 01/25/2015 every 12 hours as needed Topiramate 2 tablets by 120tabs Cheryl Saini, 11/30/2012 - 100mg Tablets mouth twice a [employer] 06/17/2015 day Pristiq 3 tabs po Unknown - 50mg Tab daily 06/22/2016 Wellbutrin 1 tab po Unknown - Tablet daily in 06/17/2015 addition to 150mg tab Topiramate (?) 60tabs Elke Dunn - 200mg Tablets Jaiden Carlton 07/09/2013 Levothyroxine Sodium 1 po qd Unknown - 25mcg Tablets 01/25/2015 Medications Administered in Office Medication SIG Qnty Indications Ordering Provider Date Depomedrol 40MG Licha Perdomo M.D. 04/25/2018 Injection Depomedrol 40MG Licha Perdomo M.D. 04/25/2018 Injection Vital Signs Date Vital Result Comment 06/11/2019 11:49am Height 62 inches 5'2" Weight 191.00 lb Heart Rate 86 /min BP Systolic 122 mmHg BP Diastolic 68 mmHg BMI (Body Mass Index) 34.9 kg/m2 11/29/2018 9:54am Height 62 inches 5'2" Weight [...] Result H/L Range Note Laboratory test 07/20/2017 [facility] TSH 0.77 mcIU/mL N 0.34- 5.[address] ([place] [address] Stim Horm) [phone] Free T4 (Free Thyroxine) 0.64 ng/dL N 0.61-1.12 Laboratory test 12/15/2015 [facility] Free T4 (Free 0.51 Low 0.61-1.[address] Thyroxine) ng/[place] [address] [phone] TSH (Thyroid Stim Horm) 3.50 ?IU/mL N 0.34-5.60 2 1 Copy Result to: EVERETT MENDOSA ([id number]) 2 Copy Result to: EVERETT MENDOSA ([id number]) Procedures Date Code Description Status 10/02/2018 94679 Carpal Tunnel Release Completed 10/02/2018 05652 Carpal Tunnel Release Completed 10/02/2018 24150 Neuroplasty &/Or Transposition; Ulnar Nerve AT Elbow Completed 10/02/2018 99306 Neuroplasty &/Or Transposition; Ulnar Nerve AT Elbow Completed 08/14/2018 00312 Carpal Tunnel Release Completed 08/14/2018 80939 Carpal Tunnel Release Completed 08/14/2018 41075 Neuroplasty &/Or Transposition; Ulnar Nerve AT Elbow Completed 08/14/2018 59327 Neuroplasty &/Or Transposition; Ulnar Nerve AT Elbow Completed 04/25/2018 70796 Injection, Carpal Tunnel Completed 05/17/2016 05881 Carpal Tunnel Release Completed 05/17/2016 15140 Carpal Tunnel Release Completed 03/11/2016 99082 Carpal Tunnel Release Completed 03/11/2016 02510 Carpal Tunnel Release Completed 08/25/2015 28873 Nerve Conduction -08 Studies Completed Encounters Type Date Location Provider Dx Diagnosis Office Visit 09/20/2018 Jean Perdomo G56.21 Lesion of ulnar 10:15a [facility]. nerve, right upper limb G56.01 Carpal tunnel syndrome, right upper limb Office Visit 08/01/2018 1:45p Jean Perdomo G56.22 Lesion of [facility]. ulnar nerve, left upper limb G56.02 Carpal tunnel syndrome, left upper limb Office Visit 05/31/2018 9:45a Jean Perdomo G56.03 Carpal tunnel Services Of M.D. syndrome, C.M.A. bilateral upper limbs G56.22 Lesion of ulnar nerve, left upper limb Office Visit 03/07/2018 10:15a Orthopedic Erin Jimenez G56.03 Carpal tunnel Services Of RPA-C syndrome, C.M.A. bilateral upper limbs G56.22 Lesion of ulnar nerve, left upper limb Office Visit 07/20/2017 Tati Dunn G43.909 Migraine, unsp, 10:00a Neurologic Jaiden Carlton not intractable, [facility] Assistant Office Manager without status migrainosus Office Visit 09/22/2016 Tati Dunn G43.909 Migraine, unsp, 11:00a Neurologic Jaiden Carlton not intractable, Services Of Assistant Office Manager without status migrainosus G56.03 Carpal tunnel syndrome, bilateral upper limbs Office Visit 05/05/2016 10:45a Tati Dunn G56.02 Carpal tunnel Services Of Assistant Office Manager Jaiden Carlton syndrome, left upper limb G56.01 Carpal tunnel syndrome, right upper limb G43.009 Migraine w/o aura, not intractable, w/o status migrainosus Office Visit 03/02/2016 9:30a Orthopedic Licha Perdomo G56.01 Carpal tunnel Services Of M.D. syndrome, right C.M.A. upper limb G56.02 Carpal tunnel syndrome, left upper limb Office Visit 12/15/2015 Tati Dunn G43.009 Migraine w/o aura, 9:45a Neurologic Jaiden Carlton not intractable, [facility] w/o status migrainosus G56.01 Carpal tunnel syndrome, right upper limb G56.02 Carpal tunnel syndrome, left upper limb Office Visit 08/25/2015 [place] Elke Dunn G43.009 Migraine w/o aura, 1:00p Neurologic Jaiden Carlton not intractable, [facility] w/o status migrainosus G56.01 Carpal tunnel syndrome, right upper limb G56.02 Carpal tunnel syndrome, left upper limb Office Visit 06/18/2015 11:00a [place] Elke Dunn 346.10 Migraine Common Neurologic Jaiden Carlton W/O Intractable [facility] W/O Status Migrainosus 354.0 Carpal Tunnel Syndrome 782.0 Skin Sensation Disturbance Office Visit 02/03/2015 Neurohospitalist Elke Dunn 346.10 Migraine Common 10:30a Clinic Jaiden Carlton W/O Intractable W/O Status Migrainosus Office Visit 07/09/2013 [facility] Elke Dunn 346.90 Migraine Unspec 11:15a [facility] Jaiden Carlton W/O Intractable W/O Status Migrainosus Office Visit 04/02/2013 [facility] Elke Dunn 346.10 Migraine Common 10:45a [facility] Jaiden Carlton W/O Intractable W/O Status Migrainosus Office Visit 11/30/2012 [place] Giovany Dunn 346.10 Migraine Common 11:45a [facility] Jaiden Carlton W/O Intractable W/O Status Migrainosus 354.0 Carpal Tunnel Syndrome Plan of Treatment Future Appointment(s):09/18/2019 10:00 am - Jorge Patrick NP at [place] [facility]06/11/2019 - Gerard Harrell M.D.G43.009 Migraine without aura, not intractable, without status migraNew Medication:Amitriptyline HCL 10 mg - take 1 tablets every night at bedtime for 2 weeks then take 2 tablets at bedtimeSumatriptan Succinate 100 mg - 1 tab po bid prn headache max 2 days a weekFollow up:3-4 months with EricRecommendations:keep a headache calender take sumatriptan for bad headaches that do not respond to ibuprofen but donot take it more than 2 days a week caffeine with drawl can cause headaches; cut your caffeine downto no more than 2 cups a day
[2019-06-20 10:55] VITALS: BP 108/87
--- NOTE | 2019-06-20 11:02 | UC ---
Throat Pain/Nasal Huang HPI - HPI Summary HPI Summary: 54 yo female presents with sinus pain/pressure/congestion for the last 3-4 days. She has not been taking anything OTC for her symptoms. She denies fever, chills, sore throat, cough, rash. She is still smoking daily. 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 Onset/Duration: Gradual Onset Severity: Severe Pain Intensity: 8 Pain Scale Used: 0-10 Numeric - Allergies/Home Medications Allergies/Adverse Reactions: Allergies Allergy/AdvReac Type Severity Reaction Status Date / Time clonidine Allergy Intermediate itch Verified 06/20/19 10:56 hydroxyzine Allergy Intermediate itch Verified 06/20/19 10:56 antibiotic AdvReac Intermediate Vomiting Uncoded 06/20/19 10:56 PMH/Surg Hx/FS Hx/Imm Hx - Additional Past Medical History Additional PMH: Headaches Endocrine History: Hypothyroidism GI/ History: Gastroesophageal Reflux Psychological History: Anxiety, Depression - Surgical History Surgical History: Yes Surgery Procedure, Year, and Place: tubal ligation 1993. left and right carpal tunnel RELEASE- 07/2018 - Family History Known Family History: Positive: Cardiac Disease, Hypertension Negative: Diabetes - Social History Lives: With Family Alcohol Use: None Substance Use Type: None Smoking Status (MU): Heavy Every Day Tobacco Smoker Type: Cigarettes Amount Used/How Often: 1 PPD X 40 YEARS Length of Time of Smoking/Using Tobacco: 35 YRS Have You Smoked in the Last Year: Yes When Did the Patient Quit Smoking/Using Tobacco: HAS INFORMATION OF CESSATION Household Exposure Type: Cigarettes - Immunization History Most Recent Influenza Vaccination: never Review of Systems All Other Systems Reviewed And Are Negative: Yes Constitutional: Positive: Negative Skin: Positive: Negative Eyes: Positive: Negative ENT: Positive: Nasal Discharge, Sinus Congestion, Sinus Pain/Tenderness Respiratory: Positive: Negative Cardiovascular: Positive: Negative Gastrointestinal: Positive: Negative Neurovascular: Positive: Negative Neurological: Positive: Negative Psychological: Positive: Negative Physical Exam - Summary Physical Exam Summary: GENERAL: NAD. WDWN. No pain distress. SKIN: No rashes, sores, lesions, or open wounds. HEENT: Head: AT/NC Eyes: EOM intact. Conjunctiva clear without inflammation or discharge. Ears: Hearing grossly normal. TMs intact, no bulging, erythema, or edema. Nose: Nasal mucosa mildly swollen and erythematous without discharge. TTP maxillary and frontal sinus. Positive post nasal drip Throat: Posterior oropharynx without exudates, erythema, or tonsillar enlargement. Uvula midline. NECK: Supple. Nontender. No lymphadenopathy. CHEST: CTAB. No r/r/w. No accessory muscle use. Breathing comfortably and in no distress. CV: RRR. Without m/r/g. Pulses intact. NEURO: Alert. PSYCH: Age appropriate behavior. Triage Information Reviewed: Yes Vital Signs: Initial Vital Signs Temp 97.1 F 06/20/19 10:51 Pulse 95 06/20/19 10:51 Resp 18 06/20/19 10:51 BP 108/87 06/20/19 10:51 Pulse Ox 97 06/20/19 10:51 Vital Signs Reviewed: Yes Throat Pain/Nasal Course/Dx - Course Course Of Treatment: Discussed viral vs bacterial causes of her sinusitis with the pt and she prefers to be on anbx at this time. - Differential Dx/Diagnosis Provider Diagnosis: Sinusitis Discharge - Sign-Out/Discharge Documenting (check all that apply): Patient Departure All imaging exams completed and their final reports reviewed: No Studies - Discharge Plan Condition: Stable Disposition: HOME Prescriptions: Amoxicillin PO (*) [Amoxicillin 875 MG (*)] 875 mg PO BID #14 tab Fluticasone NASAL SPRAY 50MCG* [Flonase NASAL SPRAY 50MCG*] 2 spray BOTH NARES DAILY #1 btl Patient Education Materials: Sinusitis (ED) Referrals: Everett Mendoza MD [Primary Care Provider] - Additional Instructions: If you develop a fever, shortness of breath, chest pain, new or worsening symptoms - please call your PCP or go to the ED immediately. - Billing Disposition and Condition Condition: STABLE Disposition: Home
== END 2019-06-20 11:12 | disposition home or self-care (01) ==
LOC: UCEAST 10:24
DX: J32.9 Chronic sinusitis, unspecified (principal); K21.9 Gastro-esophageal reflux disease without esophagitis; F41.9 Anxiety disorder, unspecified; E03.9 Hypothyroidism, unspecified; F32.9 Major depressive disorder, single episode, unspecified; F17.210 Nicotine dependence, cigarettes, uncomplicated
CPT/HCPCS: 99212; G0463

== ENCOUNTER 2019-08-08 10:36 | Emergency (ER) | payer MEDICARE ==
[2019-08-08 11:00] VITALS: BP 126/60
[2019-08-08] MEDS ORDERED: Ketorolac *IM* INJ* 60 MG/2 ML VIAL IM ONE (11:53)
--- NOTE | 2019-08-08 12:00 | UC ---
Headache HPI - HPI Summary HPI Summary: 54-year-old woman comes in with a chief complaint of a headache. Patient woke this morning with the headache. It's diffuse headache. 10 out of 10. Patient has some chronic nausea which she reports is normal and she is on Reglan. No photophobia no change in vision or speech or weakness or numbness. Patient tells me she is had these headaches ever since she was a teenager and this feels like one of her typical headaches that gets worse. The patient reports prior negative cranial imaging. She did try some ibuprofen 400 mg 5 hours ago but it did not help. No fevers or chills no signs of infection. 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 left and right carpal tunnel RELEASE- 07/2018 - Family History Known Family History: Positive: Cardiac Disease, Hypertension Negative: Diabetes - Social History Alcohol Use: None Substance Use Type: None Smoking Status (MU): Heavy Every Day Tobacco Smoker Type: Cigarettes Amount Used/How Often: 1 PPD X 40 YEARS Length of Time of Smoking/Using Tobacco: 35 YRS Have You Smoked in the Last Year: Yes When Did the Patient Quit Smoking/Using Tobacco: HAS INFORMATION OF CESSATION Household Exposure Type: Cigarettes - Immunization History Most Recent Influenza Vaccination: never Review of Systems All Other Systems Reviewed And Are Negative: Yes Constitutional: Positive: Negative Skin: Positive: Negative Eyes: Positive: Negative ENT: Positive: Negative Respiratory: Positive: Negative Cardiovascular: Positive: Negative Gastrointestinal: Positive: Nausea Motor: Positive: Negative Neurovascular: Positive: Negative Musculoskeletal: Positive: Negative Neurological: Positive: Headache Psychological: Positive: Negative Is Patient Immunocompromised?: No Physical Exam Triage Information Reviewed: Yes Appearance: Well-Appearing, Well-Nourished, Pain Distress - MILD Vital Signs: Initial Vital Signs Temp 97.8 F 08/08/19 10:58 Pulse 76 08/08/19 10:58 Resp 16 08/08/19 10:58 BP 126/60 08/08/19 10:58 Pulse Ox 100 08/08/19 10:58 Vital Signs Reviewed: Yes Eye Exam: Normal Eyes: Positive: Conjunctiva Clear, Other: - PERRLA EOMI no photophobia ENT: Positive: Pharynx normal Neck: Positive: Supple Respiratory: Positive: Lungs clear, Normal breath sounds, No respiratory distress Cardiovascular: Positive: RRR Musculoskeletal: Positive: Strength Intact, ROM Intact Neurological: Positive: Alert, Other: - No focal neurologic deficit Psychological: Positive: Age Appropriate Behavior Skin Exam: Normal Headache Course/Dx - Course Course Of Treatment: Patient reports this is a typical headache that she suffered with on and off for years and has had prior imaging. Tells me that usually Toradol 60 mg helps with the pain. Patient was given the Toradol 60 mg IM in clinic. Plan is for her to follow up with her primary care doctor and let her know that if she got worse or did not improve she needs to get reevaluated in the emergency department - Differential Dx/Diagnosis Provider Diagnosis: Headache Discharge ED - Sign-Out/Discharge Documenting (check all that apply): Patient Departure All imaging exams completed and their final reports reviewed: No Studies - Discharge Plan Condition: Stable Disposition: HOME Patient Education Materials: Acute Headache (ED) Referrals: Everett Mendoza MD [Primary Care Provider] - Additional Instructions: FOLLOW UP WITH YOUR DOCTOR. GO TO THE EMERGENCY DEPARTMENT IF YOUR CONDITION DOES NOT IMPROVE OR WORSENS; PAIN, WEAKNESS, NUMBNESS, CHANGE IN VISION OR SPEECH OR ANY QUESTIONS OR CONCERNS. - Billing Disposition and Condition Condition: STABLE Disposition: Home
== END 2019-08-08 12:07 | disposition home or self-care (01) ==
LOC: UCEAST 10:36
DX: R51 Headache (principal); E03.9 Hypothyroidism, unspecified; K21.9 Gastro-esophageal reflux disease without esophagitis; F17.210 Nicotine dependence, cigarettes, uncomplicated
CPT/HCPCS: 96372; 99211; G0463; J1885